=== PATIENT | male | born 1980 | race Caucasian/White ===

== ENCOUNTER 2020-04-28 14:07 | Outpatient (REF) | payer BC, SELFPAY ==
--- NOTE | 2020-04-28 14:22 | XR_ITS ---
EXAMINATION: XR KNEE, LEFT CLINICAL INFORMATION: Pain left knee. COMPARISON: None TECHNIQUE: Four views of the left knee. FINDINGS: There is moderate suprapatellar joint effusion without any loose bodies or bony erosive changes. No visible fracture, dislocation or subluxation. No gross bony abnormality. The prepatellar soft tissue normal. IMPRESSION: No visible acute fracture or dislocation. Moderate suprapatellar joint effusion.
== END 2020-04-28 14:08 | disposition home or self-care (01) ==
LOC: HO.HMGCX 14:07
PROVIDERS: PCP Nurse Practitioner Family; Visit Provider Hospitalist
DX: M25.562 Pain in left knee (principal)
CPT/HCPCS: 73564

== ENCOUNTER 2021-10-22 08:38 | Outpatient (REF) | payer OTHER, SELFPAY ==
--- NOTE | ~2021-10-22 | XR_ITS ---
EXAMINATION: XR CHEST CLINICAL INFORMATION: 41-year-old male with cough COMPARISON: 09/16/2013 TECHNIQUE: 2 views of the chest were obtained. FINDINGS: No significant abnormality is noted involving the heart, lungs, mediastinum, bony thorax or soft tissues. XR/XR chest 2V IMPRESSION: Unremarkable examination.
[2021-10-22 11:11] LABS: MANUAL DIFF FLAG NO
[2021-10-22 11:21] LABS: Basophils Absolute Auto 0.1 X10*3/uL (0.0-0.2); Basophils Percent Auto 0.4 % (0-2); Eosinophils Absolute Auto 0.3 X10*3/uL (0.0-0.4); Eosinophils Percent Auto 2.2 % (0-4); Hematocrit 45.5 % (42.0-52.0); Hemoglobin 15.1 g/dl (14.0-18.0); Imm Gran Abs Auto 0.04 X10*3/uL (0.00-0.03); Imm Gran Pct Auto 0.3 % (0.0-0.4); Lymphocytes Absolute Auto 3.8 X10*3/uL (1.2-4.9); Lymphocytes Percent Auto 33.2 % (20-40); Mean Corpuscular HGB Conc 33.2 g/dl (31.0-36.0); Mean Corpuscular Hemoglobin 30.5 pg (27.0-33.0); Mean Corpuscular Volume 91.9 fL (80.0-98.0); Mean Platelet Volume 11.2 fL (9.4-12.4); Monocytes Absolute Auto 0.7 X10*3/uL (0.1-1.2); Monocytes Percent Auto 6.3 % (2-11); Neutrophils Absolute Auto 6.7 x10*3/uL (2.0-8.3); Neutrophils Percent Auto 57.6 % (45-73); Platelet Count 195 X10*3/uL (160-400); Red Blood Count 4.95 X10*6/uL (4.60-5.80); Red Cell Distribution Width 12.5 % (11.0-16.0); White Blood Count 11.6 X10*3/uL (4.8-10.8)
[2021-10-22 11:49] LABS: TSH reflex Free T4 0.66 uIU/mL (0.32-4.0)
[2021-10-22 11:57] LABS: Alanine Aminotransferase 106 U/L (0-40); Albumin Level 4.1 g/dL (3.5-5.0); Alkaline Phosphatase 80 U/L (39-117); Anion Gap 15 (12-20); Aspartate Amino Transferase 65 U/L (5-37); Bilirubin Total 0.5 mg/dL (0.0-1.0); Blood Urea Nitrogen 13 mg/dL (9-16); Carbon Dioxide 27 mmol/L (22-29); Chloride 99 mmol/L (96-108); Cholesterol 140 mg/dL; Estimated Glomerular Filt Rate > 60; Glucose Fasting 364 mg/dL (60-99); HDL Cholesterol 34 mg/dL; LDL Cholesterol Calculated 80 mg/dl; Potassium 4.6 mmol/L (3.3-5.1); Sodium 136 mmol/L (135-145); Total Protein 7.9 g/dL (6.5-8.0); Triglycerides 130 mg/dL
[2021-10-22 11:57] LABS: Appearance Urine CLEAR; Color Urine YELLOW; Glucose Urine UA 500 MG/DL (NEG); Leukocyte Esterase Urine NEG (NEG); Nitrite Urine NEG (NEG); PH 5.5 (5.0-8.0); Specific Gravity - Urine >= 1.030 (1.005-1.025); Urine Blood NEG (NEG); Urine Ketones NEG (NEG); Urine Protein NEG (NEG-TRACE)
[2021-10-22 12:12] LABS: HBS Num1 > 1000.00 mIU/mL (0-7.99); HBc Num1 0.17 S/CO (0.00-0.79); HBsAGNum1 0.16 S/CO (0.00-0.99); Hepatitis B Core Antibody Nonreactive (Nonreactive); Hepatitis B Surface Antigen Negative (Negative); ~Hepatitis B Surface Antibody REACTIVE (Nonreactive)
[2021-10-22 12:24] LABS: ~HepC Num1 14.75 S/CO (0.00-0.79); ~Hepatitis C Antibody Reactive (Nonreactive)
[2021-10-23 07:37] LABS: Hepatitis A Antibody IgM 0.18 Index (0-0.79); ~Hepatitis A Antibody IgM Nonreactive (Nonreactive)
[2021-10-23 13:02] LABS: HCV RNA PCR Qn 2020000 IU/mL (NOT DETECTED); HCV RNA PCR Qn 6.31 Log IU/mL (NOT DETECTED)
[2021-11-07 18:52] LABS: HCV Genotype LiPA 1a
== END 2021-10-22 08:39 | disposition home or self-care (01) ==
LOC: HO.HMGCX 08:38
PROVIDERS: Visit Provider Nurse Practitioner Family
DX: Z00.00 Encounter for general adult medical examination without abnormal findings (principal); R05.9 Cough, unspecified; Z86.19 Personal history of other infectious and parasitic diseases
CPT/HCPCS: 36415; 71046; 80053; 80061; 81003; 84443; 85025; 86704; 86706; 86709; 86803; 87340; 87902

== ENCOUNTER 2022-03-10 15:24 | Outpatient (REF) | payer OTHER, SELFPAY ==
[2022-03-10 15:48] LABS: MANUAL DIFF FLAG NO
[2022-03-10 16:05] LABS: Appearance Urine Clear; Color Urine Yellow; Glucose Urine UA >=1000 mg/dL (Negative); Leukocyte Esterase Urine Negative (Negative); Nitrite Urine Negative (Negative); Specific Gravity - Urine 1.025 (1.005-1.025); Urine Blood Negative (Negative); Urine Ketones Negative (Negative); Urine Protein Negative (Neg-Trace)
[2022-03-10 16:06] LABS: Basophils Percent Auto 0.4 % (0-2); Eosinophils Absolute Auto 0.3 X10*3/uL (0.0-0.4); Eosinophils Percent Auto 2.3 % (0-4); Hematocrit 43.6 % (42.0-52.0); Hemoglobin 14.9 g/dl (14.0-18.0); Imm Gran Abs Auto 0.04 X10*3/uL (0.00-0.03); Imm Gran Pct Auto 0.4 % (0.0-0.4); Lymphocytes Absolute Auto 4.6 X10*3/uL (1.2-4.9); Lymphocytes Percent Auto 40.9 % (20-40); Mean Corpuscular HGB Conc 34.2 g/dl (31.0-36.0); Mean Corpuscular Hemoglobin 30.8 pg (27.0-33.0); Mean Corpuscular Volume 90.1 fL (80.0-98.0); Mean Platelet Volume 10.3 fL (9.4-12.4); Monocytes Absolute Auto 0.6 X10*3/uL (0.1-1.2); Monocytes Percent Auto 5.3 % (2-11); Neutrophils Absolute Auto 5.7 x10*3/uL (2.0-8.3); Neutrophils Percent Auto 50.7 % (45-73); Platelet Count 217 X10*3/uL (160-400); Red Blood Count 4.84 X10*6/uL (4.60-5.80); White Blood Count 11.2 X10*3/uL (4.8-10.8)
[2022-03-10 16:10] LABS: Bacteria Urine None Seen (None Seen); Hyaline Casts Urine 0-2 /LPF (0-2); RBC Urine 0-2 /HPF (0-2); Squamous Epithelial Cell Urine 0-2 /HPF (0-2); WBC Urine 0-5 /HPF (0-5)
[2022-03-10 16:23] LABS: Estimated Average Glucose 283 mg/dL; Hemoglobin A1c % 11.5 %
[2022-03-10 16:28] LABS: Creatinine Urine 58.33 mg/dL; Microalbum/Creatinine Ratio Ur 111.4 ug/mg cr
[2022-03-10 16:48] LABS: Alanine Aminotransferase 79 U/L (0-40); Albumin Level 4.2 g/dL (3.5-5.0); Alkaline Phosphatase 70 U/L (39-117); Anion Gap 15 (12-20); Aspartate Amino Transferase 37 U/L (5-37); Bilirubin Total 0.3 mg/dL (0.0-1.0); Blood Urea Nitrogen 16 mg/dL (9-16); Calcium 9.4 mg/dL (8.4-10.2); Carbon Dioxide 29 mmol/L (22-29); Chloride 98 mmol/L (96-108); Cholesterol 127 mg/dL; Estimated Glomerular Filt Rate > 60; Ferritin 302 ng/mL (20-250); Glucose Fasting 338 mg/dL (60-99); HDL Cholesterol 39 mg/dL; LDL Cholesterol Calculated 60 mg/dl; Potassium 4.8 mmol/L (3.3-5.1); Sodium 137 mmol/L (135-145); TSH reflex Free T4 0.36 uIU/mL (0.32-4.0); Total Protein 8.3 g/dL (6.5-8.0); Triglycerides 143 mg/dL
[2022-03-11 05:18] LABS: HIV AB/AG Nonreactive (Nonreactive); HIV Num 1 0.05 S/CO (0.00-0.99)
[2022-03-13 07:51] LABS: Alpha Fetoprotein 5.9 ng/mL (<6.1)
[2022-03-13 14:06] LABS: HCV RNA PCR Qn 2150000 IU/mL (NOT DETECTED); HCV RNA PCR Qn 6.33 Log IU/mL (NOT DETECTED)
[2022-03-19 08:56] LABS: HCV Genotype LiPA 1a
== END 2022-03-10 15:25 | disposition home or self-care (01) ==
LOC: HO.LAB 15:24
PROVIDERS: PCP Nurse Practitioner Family; Visit Provider Nurse Practitioner
DX: Z11.4 Encounter for screening for human immunodeficiency virus [HIV] (principal); B19.20 Unspecified viral hepatitis C without hepatic coma; E11.9 Type 2 diabetes mellitus without complications
CPT/HCPCS: 36415; 80053; 80061; 81001; 82043; 82105; 82728; 83036; 84443; 85025; 87389; 87522; 87902

== ENCOUNTER 2022-05-05 09:32 | Outpatient (REF) | payer OTHER, SELFPAY ==
--- NOTE | ~2022-05-05 | US_ITS ---
EXAMINATION: US COMPLETE ABDOMEN WITH LIVER ELASTOGRAPHY CLINICAL INFORMATION: Hepatitis C the hepatic dome. COMPARISON: None. TECHNIQUE: Real-time imaging of the abdominal viscera. Noninvasive ultrasound liver fibrosis assessment is performed using Richard ElastPQ point quantification shear wave elastography (2D-SWE) with a C5-2 MHz transducer. Multiple elastography samples are obtained. FINDINGS: PANCREAS: Visualized portions unremarkable. ABDOMINAL AORTA: Visualized portions unremarkable. INFERIOR VENA CAVA: Visualized portions unremarkable. LIVER: Diffuse increased echotexture without focal abnormality. The right lobe measures 19.3 cm in length. The left lobe measures 12.7 cm in length. Portal flow is patent with normal direction of flow. Shear wave liver elastography median stiffness is 2.17 m/s (reference: normal median stiffness is 1.3 m/s or less). IQR/median stiffness to assess sampling precision is 0.18 (reference: good quality data set is IQR/median stiffness of 0.15 or less). GALLBLADDER: 0.6 cm polyps along the superficial and posterior godoy of the fundus. No other significant abnormality. 0.7 cm echogenic focus is seen in the neck. Moderate dependent sludge. No mural thickening or pericholecystic fluid. COMMON BILE DUCT: Normal in caliber measuring 0.5 cm in diameter. RIGHT KIDNEY: 11.9 cm. Unremarkable. LEFT KIDNEY: 11.7 cm. Unremarkable. SPLEEN: 10.2 cm. Unremarkable. FREE FLUID: None. US/US abdomen comp w elastography IMPRESSION: 1. Hepatic steatosis without focal abnormality. 2. Liver elastography: Borderline rules in compensated advanced chronic liver disease/suggestive of clinically significant portal hypertension 3. Gallbladder sludge/small stones without evidence for acute cholecystitis. Gallbladder polyps amenable to follow-up with right upper quadrant ultrasound in one year. REFERENCE: Society of Radiologists in Ultrasound Liver Stiffness Thresholds (2020): LIVER STIFFNESS THRESHOLDS: *Liver Stiffness equal or less than 1.3 m/s: High probability of being normal. *Liver Stiffness less than 1.7 m/s: In the absence of other known clinical signs, rules out compensated advanced chronic liver disease. *Liver Stiffness 1.7-2.1 m/s: Suggestive of compensated advanced chronic liver disease but need further test for confirmation. *Liver Stiffness over 2.1 m/s: Rules in compensated advanced chronic liver disease. *Liver Stiffness over 2.4 m/s: Suggestive of clinically significant portal hypertension. QUALITY OF DATA SET: *IQR/Median value equal or less than 0.15 implies a quality data set. *IQR/Median value over 0.15 implies a poor quality data set. SIGNIFICANT CHANGE FROM PRIOR EXAM: Significant change if liver stiffness measurement is 10% or greater from prior exam. OTHER CONSIDERATIONS: The stage of liver fibrosis may be overestimated in the setting of acute hepatitis, liver inflammation, elevated liver function tests, hepatic vascular congestion, obstructive cholestasis, non-fasting state, and infiltrative diseases such as amyloidosis and lymphoma. In some patients with NAFLD, the liver stiffness thresholds for compensated advanced chronic liver disease may be lower. In causes other than viral hepatitis and NAFLD, liver stiffness thresholds are not well established.
== END 2022-05-05 09:33 | disposition home or self-care (01) ==
LOC: HO.US 09:32
PROVIDERS: Visit Provider Nurse Practitioner
DX: B19.20 Unspecified viral hepatitis C without hepatic coma (principal)
CPT/HCPCS: 76705; 76981

== ENCOUNTER 2023-04-12 06:28 | Outpatient (REF) | payer OTHER, SELFPAY ==
[2023-04-12 12:00] LABS: Appearance Urine Clear; Color Urine Yellow; Glucose Urine UA Negative (Negative); Leukocyte Esterase Urine Negative (Negative); Nitrite Urine Negative (Negative); PH 5.5 (5.0-9.0); Specific Gravity - Urine 1.015 (1.005-1.025); Urine Blood Negative (Negative); Urine Ketones Negative (Negative); Urine Protein Negative (Neg-Trace)
[2023-04-12 12:05] LABS: Basophils Absolute Auto 0.1 X10*3/uL (0.0-0.2); Basophils Percent Auto 0.8 % (0-2); Eosinophils Absolute Auto 0.5 X10*3/uL (0.0-0.4); Eosinophils Percent Auto 4.4 % (0-4); Hematocrit 44.1 % (42.0-52.0); Hemoglobin 14.6 g/dl (14.0-18.0); Imm Gran Abs Auto 0.03 X10*3/uL (0.00-0.03); Imm Gran Pct Auto 0.2 % (0.0-0.4); Lymphocytes Absolute Auto 5.2 X10*3/uL (1.2-4.9); Lymphocytes Percent Auto 42.7 % (20-40); MANUAL DIFF FLAG SCAN; Mean Corpuscular HGB Conc 33.1 g/dl (31.0-36.0); Mean Corpuscular Hemoglobin 30.4 pg (27.0-33.0); Mean Corpuscular Volume 91.7 fL (80.0-98.0); Mean Platelet Volume 10.5 fL (9.4-12.4); Monocytes Absolute Auto 0.8 X10*3/uL (0.1-1.2); Monocytes Percent Auto 6.6 % (2-11); Neutrophils Absolute Auto 5.6 x10*3/uL (2.0-8.3); Neutrophils Percent Auto 45.3 % (45-73); Platelet Count 251 X10*3/uL (160-400); Red Blood Count 4.81 X10*6/uL (4.60-5.80); Red Cell Distribution Width 12.5 % (11.0-16.0); SCAN SMEAR FLAG 1; White Blood Count 12.3 X10*3/uL (4.8-10.8)
[2023-04-12 12:11] LABS: Estimated Average Glucose 151 mg/dL; Hemoglobin A1C 172.4573 umol/L; Hemoglobin A1c % 6.9 % (<6.0)
[2023-04-12 12:29] LABS: Creatinine Urine 104.69 mg/dL; Microalbum/Creatinine Ratio Ur 7.6 ug/mg cr (<30)
[2023-04-12 12:39] LABS: Alanine Aminotransferase 24 U/L (0-40); Albumin Level 4.2 g/dL (3.5-5.0); Alkaline Phosphatase 76 U/L (39-117); Anion Gap 14 (12-20); Aspartate Amino Transferase 21 U/L (5-37); Bilirubin Total 0.5 mg/dL (0.0-1.0); Blood Urea Nitrogen 11 mg/dL (9-16); Calcium 9.8 mg/dL (8.4-10.2); Carbon Dioxide 30 mmol/L (22-29); Chloride 101 mmol/L (96-108); Cholesterol 148 mg/dL (<200); Estimated Glomerular Filt Rate > 60; Glucose Fasting 114 mg/dL (60-99); HDL Cholesterol 35 mg/dL (>40); LDL Cholesterol Calculated 84 mg/dL (<100); Potassium 4.7 mmol/L (3.3-5.1); Sodium 140 mmol/L (135-145); Total Protein 7.6 g/dL (6.5-8.0); Triglycerides 147 mg/dL (<150)
[2023-04-12 12:44] LABS: TSH reflex Free T4 0.84 uIU/mL (0.32-4.0)
[2023-04-12 14:21] LABS: SLIDE REVIEW VERIFIED
== END 2023-04-12 06:29 | disposition home or self-care (01) ==
LOC: HO.HMGCLDS 06:28
PROVIDERS: PCP Nurse Practitioner Family; Visit Provider Nurse Practitioner Family
DX: E11.9 Type 2 diabetes mellitus without complications (principal); I10 Essential (primary) hypertension
CPT/HCPCS: 36415; 80053; 80061; 81003; 82043; 82570; 83036; 84443; 85025

== ENCOUNTER 2023-05-02 13:56 | Outpatient (REF) | payer OTHER, SELFPAY ==
[2023-05-02 14:49] LABS: Alanine Aminotransferase 26 U/L (0-40); Albumin Level 4.4 g/dL (3.5-5.0); Alkaline Phosphatase 80 U/L (39-117); Aspartate Amino Transferase 19 U/L (5-37); Bilirubin Direct 0.1 mg/dL (0.0-0.5); Bilirubin Total 0.3 mg/dL (0.0-1.0)
[2023-05-03 15:48] LABS: HCV Log PCR <1.18 NOT DETECTED Log IU/mL (NOT DETECTED); HepC Viral Load <15 NOT DETECTED IU/mL (NOT DETECTED)
== END 2023-05-02 13:57 | disposition home or self-care (01) ==
LOC: HO.LAB 13:56
PROVIDERS: PCP Nurse Practitioner Family; Visit Provider Nurse Practitioner
DX: B19.20 Unspecified viral hepatitis C without hepatic coma (principal)
CPT/HCPCS: 36415; 80076; 87522

== ENCOUNTER 2023-05-05 14:58 | Outpatient (AMB) | payer OTHER, SELFPAY ==
--- NOTE | 2023-05-05 15:00 | A.OFFVIS_ITS ---
Intake Vital Signs 05/05/23 15:01 Height 5 ft 11 in Weight 219 lb 2.232 oz BMI 30.6 BP 128/83 Blood Pressure Location Lt brachial Position Sitting Pulse 97 Intake Visit Reasons: Follow up labs Intake Note: Patient presents to in office visit today in follow up of labs. CC: Patient reports doing better and denies having any new GI symptoms or concerns. Surveillance Manager Required: No Accompanied by: Self / Same As Patient Allergies No Known Allergies Allergy (Verified 05/05/22 11:51) HPI Follow up labs HPI Details Assessment & Plan (1) Hepatitis C: Code(s): B19.20 - Unspecified viral hepatitis C without hepatic coma Plan: CORRESPONDENCE . On 06/17/22 @ 13:28 Tish Arteaga Wrote To Naheed Damon Ene I spoke with [facility] and [employer] Support Line to attempt to obtain a copay card for pt. After multiple conversations with [facility], and [employer], pt was awarded a copay card: #[id number] [facility] [id number] [facility] [id number] II called [facility] to relay coupon code for pt, pharmacist said card is not foing through even though pt has a commercial insurance. Vale, the pharmacist is going to look into why the card is not going through and will call myself or Ene back today to inform us of the answer. On 06/17/22 @ 14:54 Tish Arteaga Wrote To Naheed Damon Received TC from [employer] who advised me that pt has a $6,235 copay, he did qualify for copay card which brings the cost down to $235 for first month. Rep is going to reach out to [facility] and ask for additional assistance for pt, then will contact pt with this information and give pt the information to reach out to 2 foundations that will give financial assistance. . On 06/11/22 @ 12:30 Tish Arteaga Wrote To Tish Arteaga see duplicate message response. Tish Arteaga completed item. On 06/02/22 @ 10:08 Tish Arteaga Wrote To Tish Arteaga TC to pt to ask if medication has been received, pt did not answer, LVM asking pt to call me when his meds are received. On 06/01/22 @ 00:01 System Wrote To Tish Arteaga Reminder sent to recipient On 05/27/22 @ 10:06 Tish Arteaga Wrote To Tish Arteaga Call to ask if medication has been received. TODAY'S VISI Pt had significant glucosurea on UA form PCP, not on SLG-1, only on metformin. WE REVIEWED THE TEST AND IT SEEMS that he has not yet begun his hepatitis C medication. We will continue to work on this and see what the problem is in the meantime I will schedule in for 6 month follow-up for his liver disease and is IBS. (2) Abdominal cramping: Code(s): R10.9 - Unspecified abdominal pain Pt had significant glucosurea on UA form PCP, not on SLG-1, only on metformin. WE REVIEWED THE TEST AND IT SEEMS that he has not yet begun his hepatitis C medication. We will continue to work on this and see what the problem is in the meantime I will schedule in for 6 month follow-up for his liver disease and is IBS. LABS: Laboratory Tests 03/10/22 04/12/23 04/12/23 15:45 06:34 06:34 WBC 12.3 H Hgb 14.6 Hct 44.1 Plt Count 251 Estimated GFR > 60 Hemoglobin A1c % Ferritin 302 H Total Bilirubin Direct Bilirubin AST ALT Alkaline Phosphata se Hep C Viral Load Hep C Viral Load L og 04/12/23 05/02/23 05/02/23 06:34 14:05 14:05 WBC Hgb Hct Plt Count Estimated GFR Hemoglobin A1c % 6.9 H Ferritin Total Bilirubin 0.3 Direct Bilirubin 0.1 AST 19 ALT 26 Alkaline Phosphata se 80 Hep C Viral Load <15 NOT DETECTED Hep C Viral Load L og <1.18 NOT DETECTE D TODAY'S VISIT PATIENT HAS BEEN LOST TO FOLLOW-UP SINCE 04/2022. However he called into the office in said he completed his hepatitis C Epclusa treatment and asked to have labs ordered to see whether it was successful I am happy to tell him that he was successfully during his hepatitis C. He was counseled that he needs to avoid any risky behaviors going forward because he will not be immune to the other genic types of hepatitis C that her possible be contacted in this way. He repeat verbalizes understanding. Return office visit p.r.n.. [facility] Medical History Diabetic neuropathy GERD (gastroesophageal reflux disease) Lumbago with sciatica, right side Anxiety Hypertension Family History Father Cancer Mother Heart disease Social History Housing: Condominium Patient Tobacco Use Status: Current everyday Tobacco user Cigarettes Per Day: 7 e-Cigarette/Vaping Use: Never Used Second Hand Smoke Exposure: Yes service: No Current occupational status: employed Current occupation: [employer] Current occupational exposures/hazards: No Cognitive needs: No Hearing needs: No Vision needs: No Review of Systems Const Denies fatigue, Denies fever(s), Denies night sweats, Denies poor appetite and Denies weight loss ENT Reports Normal hearing present, Denies dental pain, Denies dysphagia, Denies hearing loss, Denies mouth pain, Denies odynophagia, Denies throat swelling, Denies tongue swelling and Reports other (Dentition adequate) Card Reports no additional complaints Resp Reports no additional complaints GI Denies abdominal pain, Denies melena, Denies bloating, Denies hematochezia, Denies constipation, Denies GI cramping, Denies dysphagia, Denies excessive flatus, Denies early satiety, Denies heartburn, Denies diarrhea, Denies nausea, Denies odynophagia, Denies vomiting and Denies hematemesis Skin/Breast Denies pruritus, Denies lesions, Denies rash and Denies jaundice Neuro Reports Normal hearing present and Denies Abnormal speech present Endo Denies fatigue Aller/Immun Denies throat swelling and Denies tongue swelling Physical Exam Vital Signs: Last Vital Signs Pulse 97 05/05/23 15:01 BP 128/83 05/05/23 15:01 BMI result Body Mass Index 30.6 Const General: cooperative, no acute distress, well developed and well groomed Nutritional Appearance: well nourished and overweight Orientation/consciousness: oriented to person, oriented to place and oriented to time Limitations: No language barrier HEENT Head: Yes normocephalic and Yes atraumatic Eyes General: appearance normal, both eyes and all related structures Pupils: Equal, round and reactive pupils present Neck Neck: Yes normal visual inspection and Yes no lymphadenopathy Thyroid: Thyroid normal Resp Effort & Inspection: normal respiratory effort and able to speak in complete sentences Auscultation: clear to auscultation bilaterally Cardio Rate: regular rate Rhythm: regular rhythm Heart sounds: Normal, physiologic split S2 sound present Peripheral pulses: radial pulses present and posterior tibial pulses present GI Inspection: No distended and No Abdominal panniculus present Palpation (GI): Soft to palpation, nontender, no guarding, not rigid and No hepatosplenomegaly present Percussion: Yes normal to percussion Auscultation: normal bowel sounds Rectal Exam - Male: Yes deferred Skin General skin exam: no rashes or lesions noted, turgor normal, skin not dry, no jaundice, No spider nevi and no striae Rashes: no rashes Nails: normal Neuro General: oriented to person, oriented to place and oriented to time Cranial nerves: Yes Equal, round and reactive pupils present and Yes Normal hearing present Speech: No Abnormal speech present Extrem General: Yes normal to inspection, No clubbing, No cyanosis and No edema Psych Appearance: grossly normal and well kempt Mental Status: mental status grossly normal Speech and movement: Normal speech and movement present Affect: normal affect Attitude: cooperative Thought process: Normal thought process present and not confabulating Thought content: Normal thought content present Insight: Limited insight present (Psych) Judgement: Limited judgement present (Psych) Assessment & Plan Assessment & Plan (1) Hepatitis C: Comment: .SVR status post Epclusa Code(s): B19.20 - Unspecified viral hepatitis C without hepatic coma Plan PATIENT HAS BEEN LOST TO FOLLOW-UP SINCE 04/2022. However he called into the office in said he completed his hepatitis C Epclusa treatment and asked to have labs ordered to see whether it was successful I am happy to tell him that he was successfully during his hepatitis C. He was counseled that he needs to avoid any risky behaviors going forward because he will not be immune to the other genic types of hepatitis C that her possible be contacted in this way. He repeat verbalizes understanding. Return office visit p.r.n. Coding Level of Care Code Est Pt Level 3 (26037) Diagnoses Hepatitis C B19.20
[2023-05-05 15:01] VITALS: BP 128/83; PULSE 97; BMI 30.6
== END 2023-05-05 15:15 | disposition home or self-care (01) ==
PROVIDERS: PCP Nurse Practitioner Family; Visit Provider Nurse Practitioner
DX: B19.20 Unspecified viral hepatitis C without hepatic coma (principal)
CPT/HCPCS: 99213

== ENCOUNTER → 2023-05-05 14:58 | Outpatient (BNVA) | payer OTHER, SELFPAY | PROVIDERS: PCP Nurse Practitioner Family; Visit Provider Nurse Practitioner ==

== ENCOUNTER 2023-06-20 10:23 | Outpatient (AMB) | payer OTHER, SELFPAY ==
--- NOTE | 2023-06-20 10:36 | MHC.PC.OV ---
Vital Signs 06/20/23 10:37 Weight 226 lb BP 140/90 H Blood Pressure Location Rt brachial Position Sitting Pulse 83 Pulse Source Pulse Oximeter Pulse Oximetry (%) 98 Oxygen Delivery Method Room Air Intake Visit Reasons: Follow UP DM/DO not cancel Allergies No Known Allergies Allergy (Verified 05/05/22 11:51) Medication List - Last Reconciled 06/20/23 by JIL ThompsonP- alcohol swabs (Alcohol Pads) 1 pad topical BID blood sugar diagnostic (FreeStyle Lite Strips) Use to check fasting blood sugar and another random time during the day. blood-glucose meter (FreeStyle Lite Meter kit) Use to check blood sugar BID famotidine 20 mg PO BID FreeStyle Yancy 2 [place] (flash glucose scanning reader) TID testing NS FreeStyle Yancy 2 Sensor (flash glucose sensor) TID testing NS gabapentin 300 mg PO TID 30 days lancets (FreeStyle Lancets) Use to check fasting blood sugar and another time during the day losartan 50 mg PO DAILY semaglutide 1 mg (0.75 mL) subcut QWEEK Tobacco use date assessed: 06/20/23 Dental Screening Dental Screen Date: 06/20/23 Did you have a dental visit in the last 12 months?: No Did you have a dental problem in the last 6 months where you did not have access to dental care?: No Was dental information given to patient?: Patient has dentist HPI Follow UP DM/DO not cancel HPI Details Pt is a diabetic, on an ARB. Last A1C was 6.9, microalbumin is up to date. Denies polyuria, polydipsia, and neuropathy. Pt denies any signs and symptoms of hypoglycemia and does know how to correct it. Pt reports that his blood sugar has been well-controlled. He is watching his diet. Pt c/o cold intolerance and fatigue. Pt reports being very cold while outside. Will order labs, denies s/s of raynauds. Pt also c/o sinus pressure. He does have a broken right upper tooth which may be contributing to this. Will order sinus XR. HTN: Pt reports that his blood pressure is stable at home, in the 120s-130s/70s-80s. Denies chest pain, shortness of breath, headache, dizziness, and blurred vision. [facility] Medical History Diabetic neuropathy GERD (gastroesophageal reflux disease) Lumbago with sciatica, right side Anxiety Hypertension Family History Father Cancer Mother Heart disease Social History Housing: Condominium Patient Tobacco Use Status: Current everyday Tobacco user Cigarettes Per Day: 7 e-Cigarette/Vaping Use: Never Used Second Hand Smoke Exposure: Yes service: No Current occupational status: employed Current occupation: Partly Current occupational exposures/hazards: No Cognitive needs: No Hearing needs: No Vision needs: No Questionnaire Thrive Questionnaire Date Thrive assessed: 01/07/22 JOSIAH-7 AMB Questionnaire JOSIAH-7 Date JOSIAH - 7 assessed: 01/07/22 Source: Developed by Drs. Ovidio Dobbs, Meghana Carey, Kane Arzate and colleagues, with an educational ricardo from [employer]. Review of Systems Const Reports as per HPI Physical exam (Primary Care) Vital Signs: Last Vital Signs Pulse 83 06/20/23 10:37 BP 140/90 H 06/20/23 10:37 Pulse Ox 98 06/20/23 10:37 Oxygen Delivery Method Room Air 06/20/23 10:37 Tobacco/Smoking Status: Tobacco use Status Tobacco use date assessed 06/20/23 06/20/23 10:40 Patient Tobacco Use Status Current everyday Tobacco 06/20/23 10:40 e-Cigarette/Vaping Use Never Used 06/20/23 10:40 Thrive Assessment: Date of Thrive Assessment Date Thrive assessed 01/07/22 06/20/23 10:40 Const General: cooperative Orientation/consciousness: patient oriented x3 HENMT Other: tenderness with palpation of frontal + maxillary sinuses Resp Effort & Inspection: normal respiratory effort Auscultation: clear to auscultation bilaterally Cardio Rate: regular rate Rhythm: regular rhythm Heart sounds: S1 normal heart sound present and S2 normal heart sound present Neuro General: patient oriented x3 Extrem Other: bilat feet: + sensation with use of monofilament Psych Appearance: grossly normal Mental Status: mental status grossly normal Speech and movement: Normal speech and movement present Affect: normal affect Attitude: cooperative Thought process: Normal thought process present Thought content: Normal thought content present Insight: Good insight present (Psych) Judgement: Good judgement present (Psych) Assessment and Plan Assessment & Plan (1) Sinus pressure: Code(s): J34.89 - Other specified disorders of nose and nasal sinuses Plan: XR ordered (2) Fatigue: Code(s): R53.83 - Other fatigue Plan: Labs ordered (3) Cold intolerance: Code(s): R68.89 - Other general symptoms and signs Plan: Labs ordered Plan The patient agreed to the use of a product manager medical device for this encounter. Scribed for TAMMY Dailey- by Tanna Lam product manager medical device, on 06/20/2023 at 10:55 EST. Orders: Orders Vitamin B12 and Folate Today R53.83 - Other fatigue, R68.89 - Other general symptoms and signs C Reactive Protein Today R53.83 - Other fatigue, R68.89 - Other general symptoms and signs DNA Double Stranded-Crithidia Today R53.83 - Other fatigue, R68.89 - Other general symptoms and signs IRON PROFILE Today R53.83 - Other fatigue, R68.89 - Other general symptoms and signs Ferritin Today R53.83 - Other fatigue, R68.89 - Other general symptoms and signs XR sinus min 3V Today J34.89 - Other specified disorders of nose and nasal sinuses Complete Blood Count Auto Diff Today R53.83 - Other fatigue, R68.89 - Other general symptoms and signs Comprehensive Met. Panel Today R53.83 - Other fatigue, R68.89 - Other general symptoms and signs TSH reflex Free T4 Today R53.83 - Other fatigue, R68.89 - Other general symptoms and signs Tick-borne Disease Molecular Today R53.83 - Other fatigue, R68.89 - Other general symptoms and signs Erythrocyte Sedimentation Rate Today R53.83 - Other fatigue, R68.89 - Other general symptoms and signs Scleroderma 12 Panel Today R53.83 - Other fatigue, R68.89 - Other general symptoms and signs JOHAN Reflex Titer and Pattern Today R53.83 - Other fatigue, R68.89 - Other general symptoms and signs Cortisol Random Today R53.83 - Other fatigue, R68.89 - Other general symptoms and signs Medications: Refilled semaglutide Take 1mg dose until increased dose becomes available. 1 mg (0.75 mL) subcut QWEEK 3 mL 1RF E11.9 - Type 2 diabetes mellitus without complications Coding Level of Care Code Est Pt Level 3 (13479) Diagnoses Sinus pressure J34.89 Fatigue R53.83 Cold intolerance R68.89
[2023-06-20 10:37] VITALS: BP 140/90; PULSE 83; O2SAT 98
== END 2023-06-20 11:18 | disposition home or self-care (01) ==
PROVIDERS: PCP Nurse Practitioner Family; Visit Provider Nurse Practitioner Family
DX: J34.89 Other specified disorders of nose and nasal sinuses (principal); R53.83 Other fatigue; R68.89 Other general symptoms and signs
CPT/HCPCS: 99213

== ENCOUNTER 2023-06-20 11:20 | Outpatient (REF) | payer OTHER, SELFPAY ==
--- NOTE | ~2023-06-20 | XR_ITS ---
EXAMINATION: XR SINUSES CLINICAL INFORMATION: Other specified disorders of the nose and nasal sinuses. COMPARISON: None available. TECHNIQUE: 4 views of the sinuses FINDINGS: Visualized paranasal sinuses appear clear. No air-fluid levels. XR/XR sinus min 3V IMPRESSION: Visualized paranasal sinuses appear clear. If clinical concern for sinusitis persists, CT sinuses be more sensitive for evaluation.
[2023-06-20 13:12] LABS: MANUAL DIFF FLAG NO
[2023-06-20 13:46] LABS: Basophils Absolute Auto 0.1 X10*3/uL (0.0-0.2); Basophils Percent Auto 0.5 % (0-2); Eosinophils Absolute Auto 0.3 X10*3/uL (0.0-0.4); Eosinophils Percent Auto 2.9 % (0-4); Hematocrit 43.3 % (42.0-52.0); Hemoglobin 14.4 g/dl (14.0-18.0); Imm Gran Abs Auto 0.03 X10*3/uL (0.00-0.03); Imm Gran Pct Auto 0.3 % (0.0-0.4); Lymphocytes Absolute Auto 3.7 X10*3/uL (1.2-4.9); Mean Corpuscular HGB Conc 33.3 g/dl (31.0-36.0); Mean Corpuscular Hemoglobin 30.4 pg (27.0-33.0); Mean Corpuscular Volume 91.4 fL (80.0-98.0); Mean Platelet Volume 10.6 fL (9.4-12.4); Monocytes Absolute Auto 0.5 X10*3/uL (0.1-1.2); Monocytes Percent Auto 4.5 % (2-11); Neutrophils Absolute Auto 5.7 x10*3/uL (2.0-8.3); Neutrophils Percent Auto 55.8 % (45-73); Platelet Count 243 X10*3/uL (160-400); Red Blood Count 4.74 X10*6/uL (4.60-5.80); Red Cell Distribution Width 12.5 % (11.0-16.0); White Blood Count 10.3 X10*3/uL (4.8-10.8)
[2023-06-20 14:11] LABS: Alanine Aminotransferase 28 U/L (0-40); Albumin Level 4.4 g/dL (3.5-5.0); Alkaline Phosphatase 73 U/L (39-117); Anion Gap 13 (12-20); Aspartate Amino Transferase 18 U/L (5-37); Bilirubin Total 0.3 mg/dL (0.0-1.0); Blood Urea Nitrogen 10 mg/dL (9-16); C Reactive Protein 0.26 mg/dL (< or = 0.50); Calcium 9.7 mg/dL (8.4-10.2); Carbon Dioxide 27 mmol/L (22-29); Chloride 105 mmol/L (96-108); Estimated Glomerular Filt Rate > 60; Glucose Random 170 mg/dL (60-115); Iron 84 mcg/dL (45-160); Percent Iron Saturation 28 % (15-50); Potassium 4.5 mmol/L (3.3-5.1); Sodium 140 mmol/L (135-145); Total Iron Binding Capacity 297 mcg/dL (228-428); Unsaturated Iron Binding 213 ug/dL
[2023-06-20 14:29] LABS: Ferritin 162 ng/mL (20-250); TSH reflex Free T4 0.49 uIU/mL (0.32-4.0)
[2023-06-20 14:31] LABS: Erythrocyte Sedimentation Rate 5 MM/HR (0-15)
[2023-06-20 14:41] LABS: Cortisol Random 15.2 ug/dL
[2023-06-20 14:45] LABS: Folate 9.3 ng/mL (> or = 4.0); Vitamin B12 403 pg/mL (200-900)
[2023-06-22 05:44] LABS: A. Phagocytphilium DNA,RT-PCR NOT DETECTED (NOT DETECTED); Babesia Microti DNA, RT-PCR NOT DETECTED (NOT DETECTED); Borrelia Miyamotoi,DNA RT-PCR NOT DETECTED (NOT DETECTED); E.Chaffeensis DNA RT-PCR NOT DETECTED (NOT DETECTED); Lyme(Borrelia ssp)DNA RT-PCR NOT DETECTED (NOT DETECTED)
[2023-06-23 08:24] LABS: Anti Nuclear Antibody Screen NEGATIVE (NEGATIVE)
[2023-06-24 12:39] LABS: DNAds, Crithidia Antibody Negative (Negative)
== END 2023-06-20 11:21 | disposition home or self-care (01) ==
LOC: HO.HMGCX 11:20
PROVIDERS: PCP Nurse Practitioner Family; Visit Provider Nurse Practitioner Family
DX: R68.89 Other general symptoms and signs (principal); R53.83 Other fatigue; J34.89 Other specified disorders of nose and nasal sinuses
CPT/HCPCS: 36415; 70220; 80053; 82533; 82607; 82728; 82746; 83540; 84443; 85025; 85652; 86038; 86140; 86255; 87468; 87469; 87478; 87484; 87798

== ENCOUNTER 2023-09-21 08:49 | Outpatient (AMB) | payer OTHER, SELFPAY ==
[2023-09-21 08:52] VITALS: BP 142/90; PULSE 90; O2SAT 97; BMI 29.0
--- NOTE | 2023-09-21 08:52 | MHC.PC.OV ---
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 blood-glucose meter (FreeStyle Lite Meter kit) Use to check blood sugar BID famotidine 20 mg PO BID FreeStyle Yancy 2 [place] (flash glucose scanning reader) TID testing NS FreeStyle Yancy 2 Sensor (flash glucose sensor) TID testing NS gabapentin 300 mg PO TID lancets (FreeStyle Lancets) Use to check fasting blood sugar and another time during the day losartan 50 mg PO DAILY semaglutide (Ozempic) 2 mg (0.75 mL) subcut QWEEK Tobacco use date assessed: 09/21/23 Dental Screening Dental Screen Date: 09/21/23 Did you have a dental visit in the last 12 months?: Yes Did you have a dental problem in the last 6 months where you did not have access to dental care?: No Was dental information given to patient?: Patient has dentist HPI 3 Month F/U HPI Details Pt is a diabetic, on an ARB. A1C in office today is 7.3. Microalbumin is up to date. Denies polyuria, polydipsia, does have intermittent neuropathy. Pt denies any signs and symptoms of hypoglycemia and does know how to correct it. Eye exam is up to date. Pt reports that he has been working on his diet. Will start low dose atorvastatin. Pt c/o nausea. He reports that this occurs mostly in the morning when he wakes up. Will send zofran. Pt counselled on quitting smoking (? post nasal drip/smoking, causing nausea) Refuses pneumonia vaccines. [facility] Medical History Diabetic neuropathy GERD (gastroesophageal reflux disease) Lumbago with sciatica, right side Anxiety Hypertension Surgical History Hx of wisdom tooth extraction Family History Father Cancer Mother Heart disease [facility] Patient Tobacco Use Status: Current everyday Tobacco user Cigarettes Per Day: 7 e-Cigarette/Vaping Use: Never Used Second Hand Smoke Exposure: Yes service: No Current occupational status: employed Current occupation: [employer] Current occupational exposures/hazards: No Cognitive needs: No Hearing needs: No Vision needs: No Questionnaire PHQ-9 Over the last 2 weeks, how often have you been bothered by any of the following problems? 1. Little interest or pleasure in doing things: not at all 2. Feeling down, depressed, or hopeless: not at all 3. Trouble falling or staying asleep, or sleeping too much: several days 4. Feeling tired or having little energy: several days 5. Poor appetite or overeating: several days 6. Feeling bad about yourself - or that you are a failure or have let yourself or your family down: several days 7. Trouble concentrating on things, such as reading the newspaper or watching television: not at all 8. Moving or speaking so slowly that other people could have noticed. Or the opposite - being so fidgety or restless that you have been moving around a lot more than usual: not at all 9. Thoughts that you would be better off or of hurting yourself in some way: not at all Total score: 4 Depression Screening Interpretation: Negative Depression Screening Done: Yes 05703 - PHQ-9 Billing: Yes Source: Developed by Drs. Ovidio Dobbs, Meghana Carey, Kane Arzate and colleagues, with an educational ricardo from [employer]. Thrive Questionnaire Date Thrive assessed: 09/21/23 I am a: Patient What is your living situation today?: I have a steady place to live Within the past 12 months, did the food you bought not last and you didn't have the money to get more?: Never true Within the past 12 months, did you worry whether your food would run out before you got money to buy more?: Never true Do you have trouble paying for medicines?: No Do you have trouble getting transportation to medical appointments?: No Do you have trouble paying your heating and electricity bill?: No Do you have trouble taking care of your child, family member or friend?: No Do you have trouble with day-to-day activities such as bathing, preparing meals, shopping, managing finances, etc.?: No Are you currently unemployed and looking for a job?: No Are you interested in more education?: No Please select the resources that you would like help with: None Currently or been in a relationship where the following occur: no concerns reported THRIVE Score: 0 AUDIT C Alcohol Use Questionnaire (AUDIT-C) 1. How often do you have a drink containing alcohol?: Never 3. How often do you have six or more drinks on one occasion?: Never Total Score: 0 Score Reviewed/Action Taken: Yes JOSIAH-7 AMB Questionnaire JOSIAH-7 Date JOSIAH - 7 assessed: 09/21/23 Feeling nervous, anxious, or on edge: 1 = Several days Not being able to stop or control worryin = Not at all Worrying too much about different things: 1 = Several days Trouble relaxin = Several days Being so restless that it is hard to sit still: 1 = Several days Becoming easily annoyed or irritable: 1 = Several days Feeling afraid as if something awful might happen: 1 = Several days Total JOSIAH-7 score (0-4 normal; 5-9 mild; 10-14 moderate; 15-21 severe): 6 Source: Developed by Drs. Ovidio Dobbs, Meghana Carey, Kane Arzate and colleagues, with an educational ricardo from [employer]. JOSIAH-7 Assessment Billing JOSIAH-7 Assessment Tool: JOSIAH-7 Assessment 17713 Review of Systems Const Reports as per HPI Physical exam (Primary Care) Vital Signs: Last Vital Signs Pulse 90 09/21/23 08:52 BP 138/88 09/21/23 09:22 Pulse Ox 97 09/21/23 08:52 Oxygen Delivery Method Room Air 09/21/23 08:52 BMI result Body Mass Index 29.0 Tobacco/Smoking Status: Tobacco use Status Tobacco use date assessed 09/21/23 09/21/23 08:59 Patient Tobacco Use Status Current everyday Tobacco 09/21/23 08:59 e-Cigarette/Vaping Use Never Used 09/21/23 08:59 PHQ-9: PHQ-9 Score PHQ-9: Total score 4 09/21/23 09:22 Depression Screening Interpretation: Negative Thrive Assessment: Date of Thrive Assessment Date Thrive assessed 09/21/23 09/21/23 08:59 Currently or been in a relationship where the following occur: no concerns reported Const General: cooperative Orientation/consciousness: patient oriented x3 Resp Effort & Inspection: normal respiratory effort Auscultation: clear to auscultation bilaterally Cardio Rate: regular rate Rhythm: regular rhythm Heart sounds: S1 normal heart sound present and S2 normal heart sound present GI Palpation (GI): Soft to palpation and nontender Auscultation: normal bowel sounds Neuro General: patient oriented x3 Extrem Other: bilat feet: + sensation with use of monofilament, feet intact Psych Appearance: grossly normal Mental Status: mental status grossly normal Speech and movement: Normal speech and movement present Affect: normal affect Attitude: cooperative Thought process: Normal thought process present Thought content: Normal thought content present Insight: Good insight present (Psych) Judgement: Good judgement present (Psych) Results AMB Hemoglobin A1c AMB Hemoglobin A1c 7.3 % Last Edit by Braulio Pope CMA on 09/21/23 09:15 Results Reviewed Results Reviewed: Laboratory Last Values Hgb A1c (Clinic) 7.3 % (4.0-6.0) H 09/21/23 09:14 Assessment and Plan Assessment & Plan (1) Diabetes: Code(s): E11.9 - Type 2 diabetes mellitus without complications Plan: no changes, working on diet, using sensor, lab work ordered. Plan The patient agreed to the use of a medical payment poster for this encounter. Scribed for AZUL Dailey by Tanna Lam medical payment poster, on 09/21/2023 at 09:10 EST. Orders: Orders Complete Blood Count Auto Diff Today E11.9 - Type 2 diabetes mellitus without complications AMB Hemoglobin A1c Today Z13.9 - Encounter for screening, unspecified Comprehensive Guy. Panel Fast Today E11.9 - Type 2 diabetes mellitus without complications TSH reflex Free T4 Today E11.9 - Type 2 diabetes mellitus without complications UA CC w/rflx Micro + Cult Today E11.9 - Type 2 diabetes mellitus without complications Lipid Panel Today E11.9 - Type 2 diabetes mellitus without complications Medications: New ondansetron 8 mg PO Q12H PRN 30 tabs 0RF nausea and vomiting 30 days atorvastatin 10 mg PO BEDTIME 90 tabs 0RF Refilled FreeStyle Yancy 2 Sensor (flash glucose sensor) TID testing 6 ea 4RF NS E11.9 - Type 2 diabetes mellitus without complications Coding Level of Care Code Est Pt Level 3 (90138) Diagnoses Diabetes E11.9 Additional Codes JOSIAH-7 Assessment Billing - JOSIAH-7 Assessment Tool: JOSIAH-7 Assessment 57423 ([id number])
[2023-09-21 09:22] VITALS: BP 138/88
== END 2023-09-21 09:29 | disposition home or self-care (01) ==
PROVIDERS: PCP Nurse Practitioner Family; Visit Provider Nurse Practitioner Family
DX: E11.40 Type 2 diabetes mellitus with diabetic neuropathy, unspecified (principal); R11.0 Nausea; F17.210 Nicotine dependence, cigarettes, uncomplicated
CPT/HCPCS: 83036; 99214

== ENCOUNTER 2024-01-31 06:10 | Outpatient (REF) | payer OTHER, SELFPAY ==
[2024-01-31 10:18] LABS: Appearance Urine Clear; Color Urine Yellow; Glucose Urine UA Negative (Negative); Leukocyte Esterase Urine Negative (Negative); Nitrite Urine Negative (Negative); PH 5.5 (5.0-9.0); Specific Gravity - Urine 1.025 (1.005-1.025); Urine Blood Negative (Negative); Urine Ketones Negative (Negative); Urine Protein Negative (Neg-Trace)
[2024-01-31 10:20] LABS: Basophils Absolute Auto 0.1 X10*3/uL (0.0-0.2); Basophils Percent Auto 0.5 % (0-2); Eosinophils Absolute Auto 0.5 X10*3/uL (0.0-0.4); Eosinophils Percent Auto 4.7 % (0-4); Hematocrit 41.1 % (42.0-52.0); Hemoglobin 13.9 g/dl (14.0-18.0); Imm Gran Abs Auto 0.04 X10*3/uL (0.00-0.03); Imm Gran Pct Auto 0.4 % (0.0-0.4); Lymphocytes Absolute Auto 5.6 X10*3/uL (1.2-4.9); Lymphocytes Percent Auto 49.8 % (20-40); MANUAL DIFF FLAG SCAN; Mean Corpuscular HGB Conc 33.8 g/dl (31.0-36.0); Mean Corpuscular Hemoglobin 30.9 pg (27.0-33.0); Mean Corpuscular Volume 91.3 fL (80.0-98.0); Mean Platelet Volume 10.8 fL (9.4-12.4); Monocytes Absolute Auto 0.7 X10*3/uL (0.1-1.2); Monocytes Percent Auto 6.5 % (2-11); Neutrophils Absolute Auto 4.3 x10*3/uL (2.0-8.3); Neutrophils Percent Auto 38.1 % (45-73); Platelet Count 213 X10*3/uL (160-400); Red Cell Distribution Width 12.6 % (11.0-16.0); SCAN SMEAR FLAG 1; White Blood Count 11.2 X10*3/uL (4.8-10.8)
[2024-01-31 10:33] LABS: Alanine Aminotransferase 28 U/L (0-40); Albumin Level 4.2 g/dL (3.5-5.0); Alkaline Phosphatase 65 U/L (39-117); Anion Gap 12 (12-20); Aspartate Amino Transferase 21 U/L (5-37); Bilirubin Total 0.3 mg/dL (0.0-1.0); Blood Urea Nitrogen 15 mg/dL (9-16); Calcium 9.6 mg/dL (8.4-10.2); Carbon Dioxide 30 mmol/L (22-29); Chloride 104 mmol/L (96-108); Cholesterol 135 mg/dL (<200); Estimated Glomerular Filt Rate > 60; Glucose Fasting 111 mg/dL (60-99); HDL Cholesterol 36 mg/dL (>40); LDL Cholesterol Calculated 80 mg/dL (<100); Potassium 4.7 mmol/L (3.3-5.1); Sodium 141 mmol/L (135-145); Total Protein 7.3 g/dL (6.5-8.0); Triglycerides 96 mg/dL (<150)
[2024-01-31 10:49] LABS: TSH reflex Free T4 0.51 uIU/mL (0.32-4.0)
[2024-01-31 11:00] LABS: SLIDE REVIEW VERIFIED
== END 2024-01-31 06:11 | disposition home or self-care (01) ==
LOC: HO.HMGCLDS 06:10
PROVIDERS: PCP Nurse Practitioner Family; Visit Provider Nurse Practitioner Family
DX: E11.9 Type 2 diabetes mellitus without complications (principal)
CPT/HCPCS: 36415; 80053; 80061; 81003; 84443; 85025

== ENCOUNTER 2024-02-01 09:55 | Outpatient (AMB) | payer OTHER, SELFPAY ==
--- NOTE | 2024-02-01 09:56 | MHC.PC.OV ---
Vital Signs 02/01/24 09:59 Height 5 ft 11 in Weight 217 lb BMI 30.3 BP 116/110 H Blood Pressure Location Lt brachial Position Sitting Pulse 86 Pulse Source Pulse Oximeter Pulse Oximetry (%) 97 Oxygen Delivery Method Room Air Intake Visit Reasons: 4 Month F/U - see comments Intake Note: Patient here for DM f/u. Allergies No Known Allergies Allergy (Verified 02/01/24 09:59) Medication List - Last Reconciled 02/01/24 by AZUL Thompson alcohol swabs (Alcohol Pads) 1 pad topical BID amoxicillin-pot clavulanate 875-125 mg 1 tab PO BID 10 days atorvastatin 10 mg PO BEDTIME blood sugar diagnostic (FreeStyle Lite Strips) Use to check fasting blood sugar and another random time during the day. blood-glucose meter (FreeStyle Lite Meter kit) Use to check blood sugar BID famotidine 20 mg PO BID fluticasone propionate 50 mcg/actuation (Allergy Relief (fluticasone)) 2 sprays intranasal DAILY FreeStyle Yancy 2 [place] (flash glucose scanning reader) TID testing NS FreeStyle Yancy 2 Sensor (flash glucose sensor) TID testing NS gabapentin 300 mg PO TID lancets (FreeStyle Lancets) Use to check fasting blood sugar and another time during the day losartan 50 mg PO DAILY ondansetron 8 mg PO Q12H PRN 30 days semaglutide (Ozempic) 2 mg (0.75 mL) subcut QWEEK Tobacco use date assessed: 09/21/23 Dental Screening Dental Screen Date: 09/21/23 HPI 4 Month F/U - see comments HPI Details Pt is a diabetic, on an ARB and a statin. A1C in office today is 7.0. Microalbumin is up to date. Denies polyuria, polydipsia, and neuropathy. Pt denies any signs and symptoms of hypoglycemia and does know how to correct it. Pt is using the sensor. Pt c/o maxillary/frontal sinus pressure. He does report a lack of taste and smell. He has tried cetirizine which did not help, will send montelukast. Will treat for sinusitis with augmentin. Pt reports loss of appetite and nausea with ozempic use. Will decrease to 1mg and add jardiance 10mg. HTN: pt is extremely stressed today, due to work, will increase his losartan to 100mg from 50mg, will have him monitor his BP at home. Denies any CP, sob, vann, palpitations, blurred vision. [facility] Medical History Diabetic neuropathy GERD (gastroesophageal reflux disease) Lumbago with sciatica, right side Anxiety Hypertension Surgical History Hx of wisdom tooth extraction Family History Father Cancer Mother Heart disease Social History Housing: Condominium Patient Tobacco Use Status: Current everyday Tobacco user Cigarettes Per Day: 7 e-Cigarette/Vaping Use: Never Used Second Hand Smoke Exposure: Yes service: No Current occupational status: employed Current occupation: [employer] Current occupational exposures/hazards: No Cognitive needs: No Hearing needs: No Vision needs: No Questionnaire PHQ-9 Over the last 2 weeks, how often have you been bothered by any of the following problems? 1. Little interest or pleasure in doing things: not at all 2. Feeling down, depressed, or hopeless: not at all 3. Trouble falling or staying asleep, or sleeping too much: not at all 4. Feeling tired or having little energy: not at all 5. Poor appetite or overeating: not at all 6. Feeling bad about yourself - or that you are a failure or have let yourself or your family down: not at all 7. Trouble concentrating on things, such as reading the newspaper or watching television: not at all 8. Moving or speaking so slowly that other people could have noticed. Or the opposite - being so fidgety or restless that you have been moving around a lot more than usual: not at all 9. Thoughts that you would be better off or of hurting yourself in some way: not at all Total score: 0 Depression Screening Interpretation: Negative Depression Screening Done: Yes 49835 - PHQ-9 Billing: Yes Source: Developed by Drs. Ovidio Dobbs, Kane Max and colleagues, with an educational ricardo from [employer] Thrive Questionnaire Date Thrive assessed: 09/21/23 I am a: Patient What is your living situation today?: I have a steady place to live Within the past 12 months, did the food you bought not last and you didn't have the money to get more?: Never true Within the past 12 months, did you worry whether your food would run out before you got money to buy more?: Never true Do you have trouble paying for medicines?: No Do you have trouble getting transportation to medical appointments?: No Do you have trouble paying your heating and electricity bill?: No Do you have trouble taking care of your child, family member or friend?: No Do you have trouble with day-to-day activities such as bathing, preparing meals, shopping, managing finances, etc.?: No Are you currently unemployed and looking for a job?: No Are you interested in more education?: No Please select the resources that you would like help with: Housing/Nursing Home Currently or been in a relationship where the following occur: No concerns reported THRIVE Score: 0 AUDIT C Alcohol Use Questionnaire (AUDIT-C) 1. How often do you have a drink containing alcohol?: Monthly or less 2. How many drinks containing alcohol do you have on a typical day when you are drinking?: 1 or 2 3. How often do you have six or more drinks on one occasion?: Never Total Score: 1 Score Reviewed/Action Taken: Yes JOSIAH-7 AMB Questionnaire JOSIAH-7 Date JOSIAH - 7 assessed: 09/21/23 Feeling nervous, anxious, or on edge: 0 = Not at all Not being able to stop or control worryin = Not at all Worrying too much about different things: 0 = Not at all Trouble relaxin = Not at all Being so restless that it is hard to sit still: 0 = Not at all Becoming easily annoyed or irritable: 0 = Not at all Feeling afraid as if something awful might happen: 0 = Not at all Total JOSIAH-7 score (0-4 normal; 5-9 mild; 10-14 moderate; 15-21 severe): 0 Source: Developed by Drs. Ovidio Dobbs, Kane Max and colleagues, with an educational ricardo from [employer] JOSIAH-7 Assessment Billing JOSIAH-7 Assessment Tool: JOSIAH-7 Assessment 79637 Review of Systems Const Reports as per HPI Physical exam (Primary Care) Vital Signs: Last Vital Signs Pulse 86 02/01/24 09:59 BP 116/110 H 02/01/24 09:59 Pulse Ox 97 02/01/24 09:59 Oxygen Delivery Method Room Air 02/01/24 09:59 BMI result Body Mass Index 30.3 Tobacco/Smoking Status: Tobacco use Status Tobacco use date assessed 09/21/23 02/01/24 09:56 Patient Tobacco Use Status Current everyday Tobacco 02/01/24 09:56 e-Cigarette/Vaping Use Never Used 02/01/24 09:56 PHQ-9: PHQ-9 Score PHQ-9: Total score 0 02/01/24 10:18 Depression Screening Interpretation: Negative Thrive Assessment: Date of Thrive Assessment Date Thrive assessed 09/21/23 02/01/24 09:56 Currently or been in a relationship where the following occur: No concerns reported Const General: cooperative Orientation/consciousness: patient oriented x3 Resp Effort & Inspection: normal respiratory effort Auscultation: clear to auscultation bilaterally Cardio Other: PVC on auscultation (confirmed with ekg) Rate: regular rate Rhythm: regular rhythm Heart sounds: S1 normal heart sound present and S2 normal heart sound present Neuro General: patient oriented x3 Extrem Other: bilat feet: + sensation with use of monofilament, feet intact Psych Appearance: grossly normal Mental Status: mental status grossly normal Speech and movement: Normal speech and movement present Affect: normal affect Attitude: cooperative Thought process: Normal thought process present Thought content: Normal thought content present Insight: Good insight present (Psych) Judgement: Good judgement present (Psych) Results AMB Hemoglobin A1c AMB Hemoglobin A1c 7.0 % Last Edit by ALEX Ambriz on 02/01/24 10:19 Results Reviewed Results Reviewed: Laboratory Last Values Hgb A1c (Clinic) 7.0 % (4.0-6.0) H 02/01/24 10:05 Assessment and Plan Assessment & Plan (1) Diabetes: Code(s): E11.9 - Type 2 diabetes mellitus without complications Plan: A1C done in office, decreasing ozempic and adding jardiance (2) Sinusitis: Code(s): J32.9 - Chronic sinusitis, unspecified Plan: Sending augmentin (3) Hypertension: Code(s): I10 - Essential (primary) hypertension Plan: increasing losartan from 50mg to 100mg, have pt monitor BP at home, sending me values from home via the portal (4) Asymptomatic PVCs: Code(s): I49.3 - Ventricular premature depolarization Plan: EKG used to confirm Plan The patient agreed to the use of a medical imaging tech for this encounter. Scribed for AZUL Dailey by Tanna Lam medical imaging tech, on 02/01/2024 at 10:15 EST. Orders: Orders AMB Hemoglobin A1c Today Z13.9 - Encounter for screening, unspecified AMB EKG-In Office Today E11.9 - Type 2 diabetes mellitus without complications, I49.3 - Ventricular premature depolarization Medications: New montelukast 10 mg PO BEDTIME 30 tabs 4RF amoxicillin-pot clavulanate 875-125 mg 1 tab PO BID 10 days 20 tabs 0RF empagliflozin (Jardiance) 10 mg PO DAILY 90 tabs 0RF Changed From losartan 50 mg PO DAILY 90 tabs 1RF To losartan increased dose due to high blood pressure 100 mg PO DAILY 90 tabs 1RF From semaglutide (Ozempic) 2 mg (0.75 mL) subcut QWEEK 9 mL 1RF To semaglutide 1 mg (0.75 mL) subcut QWEEK 3 mL 1RF Refilled FreeStyle Yancy 2 Sensor (flash glucose sensor) TID testing 6 ea 4RF NS E11.9 - Type 2 diabetes mellitus without complications Coding Level of Care Code Est Pt Level 4 (10486) Diagnoses Diabetes E11.9 Sinusitis J32.9 Hypertension I10 Asymptomatic PVCs I49.3 Additional Codes JOSIAH-7 Assessment Billing - JOSIAH-7 Assessment Tool: JOSIAH-7 Assessment 59897 ([id number])
[2024-02-01 09:59] VITALS: BP 116/110; PULSE 86; O2SAT 97; BMI 30.3
== END 2024-02-01 10:54 | disposition home or self-care (01) ==
PROVIDERS: PCP Nurse Practitioner Family; Visit Provider Nurse Practitioner Family
DX: E11.9 Type 2 diabetes mellitus without complications (principal); J32.9 Chronic sinusitis, unspecified; I10 Essential (primary) hypertension; I49.3 Ventricular premature depolarization
CPT/HCPCS: 83036; 99214

== ENCOUNTER 2024-05-03 12:57 | Outpatient (AMB) | payer OTHER, SELFPAY ==
[2024-05-03 12:58] VITALS: BP 150/100; PULSE 83; O2SAT 98
--- NOTE | 2024-05-03 12:58 | A.OFFPC_ITS ---
Vital Signs 05/03/24 12:58 Height 5 ft 11 in Weight 215 lb BMI 30.0 BP 150/100 H Blood Pressure Location Rt brachial Position Sitting Pulse 83 Pulse Source Pulse Oximeter Pulse Oximetry (%) 98 Intake Visit Reasons: follow up Intake Note: pt is here for follow up, DM Video Games Storywriter Required: No Accompanied by: Self / Same As Patient Allergies GLP-1 agonist Adverse Reaction (Severe, Uncoded 05/03/24 13:34) Nausea Medication List - Last Reconciled 05/03/24 by TAVIA Thompson alcohol swabs (Alcohol Pads) 1 pad topical BID atorvastatin 10 mg PO BEDTIME blood sugar diagnostic (FreeStyle Lite Strips) Use to check fasting blood sugar and another random time during the day. blood-glucose meter (FreeStyle Lite Meter kit) Use to check blood sugar BID empagliflozin 25 mg PO DAILY famotidine 20 mg PO BID fluticasone propionate 50 mcg/actuation (Allergy Relief (fluticasone)) 2 sprays intranasal DAILY FreeStyle Yancy 2 [place] (flash glucose scanning reader) TID testing NS FreeStyle Yancy 2 Sensor (flash glucose sensor) TID testing NS gabapentin 300 mg PO TID lancets (FreeStyle Lancets) Use to check fasting blood sugar and another time during the day montelukast 10 mg PO BEDTIME ondansetron 8 mg PO Q12H PRN 30 days Tobacco use date assessed: 09/21/23 Dental Screening Dental Screen Date: 09/21/23 HPI follow up HPI Details Pt is a diabetic, on a statin. A1C in office today is . Due for microalbumin, will order. Denies polyuria, polydipsia, and neuropathy. Pt denies any signs and symptoms of hypoglycemia and does know how to correct it. Pt's ozempic was stopped due to nausea. He can not tolerate GLP-1 agonists. Pt reports that he is no longer nauseous. His jardiance was increased. Pt reports that his blood sugar is spiking up to 240s-250s daily. Will start lantus 10 units. Eye exam is up to date. Pt is following up with ENT due to a deviated septum. [facility] Medical History Diabetic neuropathy GERD (gastroesophageal reflux disease) Lumbago with sciatica, right side Anxiety Hypertension Surgical History Hx of wisdom tooth extraction Family History Father Cancer Mother Heart disease Social History Housing: Condominium Patient Tobacco Use Status: Current everyday Tobacco user Cigarettes Per Day: 7 e-Cigarette/Vaping Use: Never Used Second Hand Smoke Exposure: Yes service: No Current occupational status: employed Current occupation: [employer] Current occupational exposures/hazards: No Cognitive needs: No Hearing needs: No Vision needs: No Questionnaire PHQ-9 Over the last 2 weeks, how often have you been bothered by any of the following problems? 1. Little interest or pleasure in doing things: not at all 2. Feeling down, depressed, or hopeless: not at all 3. Trouble falling or staying asleep, or sleeping too much: not at all 4. Feeling tired or having little energy: not at all 5. Poor appetite or overeating: not at all 6. Feeling bad about yourself - or that you are a failure or have let yourself or your family down: not at all 7. Trouble concentrating on things, such as reading the newspaper or watching television: not at all 8. Moving or speaking so slowly that other people could have noticed. Or the opposite - being so fidgety or restless that you have been moving around a lot more than usual: not at all 9. Thoughts that you would be better off or of hurting yourself in some way: not at all Total score: 0 Depression Screening Interpretation: Negative Depression Screening Done: Yes 45386 - PHQ-9 Billing: Yes Source: Developed by Drs. Ovidio Dobbs, Meghana Carey, Kane Arzate and colleagues, with an educational ricardo from [employer]. Thrive Questionnaire Date Thrive assessed: 01/26/24 JOSIAH-7 AMB Questionnaire JOSIAH-7 Date JOSIAH - 7 assessed: 09/21/23 Source: Developed by Drs. Ovidio Dobbs, Kane Max and colleagues, with an educational ricardo from [employer] Review of Systems Const Reports as per HPI Physical exam (Primary Care) Vital Signs: Last Vital Signs Pulse 83 05/03/24 12:58 BP 150/100 H 05/03/24 12:58 Pulse Ox 98 05/03/24 12:58 BMI result Body Mass Index 30.0 Tobacco/Smoking Status: Tobacco use Status Tobacco use date assessed 09/21/23 05/03/24 13:00 Patient Tobacco Use Status Current everyday Tobacco 05/03/24 13:00 e-Cigarette/Vaping Use Never Used 05/03/24 13:00 PHQ-9: PHQ-9 Score PHQ-9: Total score 0 05/03/24 13:15 Depression Screening Interpretation: Negative Thrive Assessment: Date of Thrive Assessment Date Thrive assessed 01/26/24 05/03/24 13:00 Const General: cooperative Orientation/consciousness: patient oriented x3 Resp Effort & Inspection: normal respiratory effort Auscultation: clear to auscultation bilaterally Cardio Rate: regular rate Rhythm: regular rhythm Heart sounds: S1 normal heart sound present and S2 normal heart sound present Neuro General: patient oriented x3 Extrem Other: bilat feet: + sensation with use of monofilament, feet intact Psych Appearance: grossly normal Mental Status: mental status grossly normal Speech and movement: Normal speech and movement present Affect: normal affect Attitude: cooperative Thought process: Normal thought process present Thought content: Normal thought content present Insight: Good insight present (Psych) Judgement: Good judgement present (Psych) Coding Level of Care Code Est Pt Level 3 (20647) Diagnoses Diabetes E11.9 Assessment & Plan Assessment & Plan (1) Diabetes: Code(s): E11.9 - Type 2 diabetes mellitus without complications Category: Medical Plan: starting lantus 10 units. Pt will contact me via portal with values, so lantus can be adjusted Plan The patient agreed to the use of a medical reimbursement specialist for this encounter. Scribed for AZUL Dailey by Tanna Lam medical reimbursement specialist, on 05/03/2024 at 13:15 EST. Orders: Orders AMB Hemoglobin A1c Today Z13.9 - Encounter for screening, unspecified Complete Blood Count Auto Diff Today E11.9 - Type 2 diabetes mellitus without complications Comprehensive [place]. Panel Fast Today E11.9 - Type 2 diabetes mellitus without complications UA CC w/rflx Micro + Cult Today E11.9 - Type 2 diabetes mellitus without complications TSH reflex Free T4 Today E11.9 - Type 2 diabetes mellitus without complications Lipid Panel Today E11.9 - Type 2 diabetes mellitus without complications Microalbumin, Random (w Creat) Today E11.9 - Type 2 diabetes mellitus without complications Medications: New insulin glargine (Lantus Solostar U-100 Insulin) 10 units (0.1 mL) subcut QPM 15 mL 1RF pen needle, diabetic (Easy Comfort Pen [place]) Qpm 100 ea 1RF diabetes
== END 2024-05-03 13:51 | disposition home or self-care (01) ==
PROVIDERS: PCP Nurse Practitioner Family; Visit Provider Nurse Practitioner Family
DX: Z13.9 Encounter for screening, unspecified (principal)

== ENCOUNTER → 2024-05-03 12:57 | Outpatient (BNVA) | payer OTHER, SELFPAY | PROVIDERS: PCP Nurse Practitioner Family; Visit Provider Nurse Practitioner Family | DX: E11.9 Type 2 diabetes mellitus without complications (principal) | CPT/HCPCS: 83036; 96127 ==

== ENCOUNTER 2024-05-24 12:44 | Outpatient (AMB) | payer OTHER, SELFPAY ==
--- NOTE | 2024-05-24 13:02 | A.OFFVIS_ITS ---
Vital Signs 05/24/24 13:06 Height 5 ft 11 in Weight 218 lb 4.122 oz BMI 30.4 BP 124/80 Blood Pressure Location Rt brachial Position Sitting Pulse 74 Pulse Source Pulse Oximeter Intake Visit Reasons: T2DM/CONFIRMED Intake Note: NEW Patient presents today to establish treatment for Type 2 Diabetes Mellitus: Last Diabetic eye exam was on: Two months ago Last Podiatry exam was on: Does not see a Coil Finisher Most recent HbA1c: 7.0%, 05/03/2024 Random Glucose- 220 mg/dL, Today Roof Fitter Required: No Accompanied by: Self / Same As Patient Allergies semaglutide [From Ozempic] Adverse Reaction (Mild, Verified 05/24/24 13:13) Nausea Medication List - Last Reconciled 05/24/24 by Vale Teran MD alcohol swabs (Alcohol Pads) 1 pad topical BID atorvastatin 10 mg PO BEDTIME blood sugar diagnostic (FreeStyle Lite Strips) Use to check fasting blood sugar and another random time during the day. blood-glucose meter (FreeStyle Lite Meter kit) Use to check blood sugar BID empagliflozin 25 mg PO DAILY famotidine 20 mg PO BID fluticasone propionate 50 mcg/actuation (Allergy Relief (fluticasone)) 2 sprays intranasal DAILY FreeStyle Yanyc 2 [place] (flash glucose scanning reader) TID testing NS FreeStyle Yancy 2 Sensor (flash glucose sensor) TID testing NS gabapentin 300 mg PO TID insulin glargine (Lantus Solostar U-100 Insulin) 10 units (0.1 mL) subcut QPM lancets (FreeStyle Lancets) Use to check fasting blood sugar and another time during the day montelukast 10 mg PO BEDTIME ondansetron 8 mg PO Q12H PRN 30 days pen needle, diabetic (Easy Comfort Pen [place]) Qpm HPI Comments Details: The patient is a 43 year old male presenting for diabetes Medical history: neuropathy, GERD, allergies/asthma Diagnosed at age 41 Current medications: Jardiance -this was increased from 10 to 25mg last month, lantus 10 units (started last month). Past medications: ozempic -did not tolerate He went off ozempic 2mg ~2 months ago at which time his glucose became poorly controlled with numbers in 200s-300s. He stopped due to nausea and being unable to tolerate meals. He experienced nausea even at lower doses. He was on trulicity awhile back but stopped this medication due to the shortage. Microvascular/macrovascular complications: No retinopathy. +neuropathy-stable on gabapentin Family history: mom diabetes Sees eye-utd Sees podiatry-utd ROS CONSTITUTIONAL: Denies weight loss, fever and chills. HEENT: Denies changes in vision and hearing. RESPIRATORY: Denies SOB and cough. CV: Denies palpitations and CP GI: Denies abdominal pain, nausea, vomiting and diarrhea. : Denies dysuria and urinary frequency. MSK: Denies new myalgia and joint pain. SKIN: Denies rash and pruritus. NEUROLOGICAL: Denies headache PSYCHIATRIC: Denies recent changes in mood. PHYSICAL EXAM: GENERAL: Alert and oriented x 3. NAD EYES: EOMI. Anicteric. HENT: Moist mucous membranes. No scleral icterus. No cervical lymphadenopathy. LUNGS: Clear to auscultation bilaterally. CARDIOVASCULAR: Regular rate and rhythm. No murmur. No JVD. ABDOMEN: Soft, non-tender +bs EXTREMITIES: No edema. Non-tender. SKIN: No rashes or lesions. Warm. NEUROLOGIC: No focal neurological deficits. CN II-XII grossly intact PSYCHIATRIC: Cooperative. Appropriate mood and affect [facility] Medical History Diabetic neuropathy GERD (gastroesophageal reflux disease) Lumbago with sciatica, right side Anxiety Hypertension Surgical History Hx of wisdom tooth extraction Family History Father Cancer Mother Heart disease Social History Housing: Condominium Patient Tobacco Use Status: Current everyday Tobacco user Cigarettes Per Day: 7 e-Cigarette/Vaping Use: Never Used Second Hand Smoke Exposure: Yes service: No Current occupational status: employed Current occupation: [employer] Current occupational exposures/hazards: No Cognitive needs: No Hearing needs: No Vision needs: No Assessment & Plan Assessment & Plan (1) Insulin-requiring or dependent type II diabetes mellitus: Code(s): E11.9 - Type 2 diabetes mellitus without complications; Z79.4 - intermediate frame tender (current) use of insulin Category: Medical Plan: Can stay on lantus 20 u Continue jardiance Start trulicity 0.75 weekly. May need to increase-follow up 3-4 weeks (2) Diabetic neuropathy: Code(s): E11.40 - Type 2 diabetes mellitus with diabetic neuropathy, unspecified Category: Medical Qualifiers: Diabetes mellitus type: type 2 Diabetes mellitus complication detail: diabetic polyneuropathy Qualified Code(s): E11.42 - Type 2 diabetes mellitus with diabetic polyneuropathy Plan: stable oon gabapentin Orders: Orders Pathologist Review - CBC Today E11.40 - Type 2 diabetes mellitus with diabetic neuropathy, unspecified, E11.9 - Type 2 diabetes mellitus without complications, Z79.4 - intermediate frame tender (current) use of insulin Islet Cell Antibody Scrn/Titer Today E11.9 - Type 2 diabetes mellitus without complications, Z79.4 - shelter (current) use of insulin Medications: New dulaglutide (Trulicity) 0.75 mg (0.5 mL) subcut QWEEK 2 mL 3RF Coding Level of Care Code Est Pt Level 4 (31777) Diagnoses Insulin-requiring or dependent type II diabetes mellitus E11.9; Z79.4 Diabetic polyneuropathy associated with type 2 diabetes mellitus E11.42 Diabetes mellitus type: type 2 Diabetes mellitus complication detail: diabetic polyneuropathy
[2024-05-24 13:06] VITALS: BP 124/80; PULSE 74; BMI 30.4
[2024-05-24 13:15] LABS: Glucose, Whole Blood 220 mg/dL (60-115)
== END 2024-05-24 13:34 | disposition home or self-care (01) ==
PROVIDERS: PCP Nurse Practitioner Family; Visit Provider Internal Medicine
DX: E11.42 Type 2 diabetes mellitus with diabetic polyneuropathy (principal); Z79.4 Long term (current) use of insulin

== ENCOUNTER → 2024-05-24 12:44 | Outpatient (BNVA) | payer OTHER, SELFPAY | PROVIDERS: PCP Nurse Practitioner Family; Visit Provider Internal Medicine | DX: E11.42 Type 2 diabetes mellitus with diabetic polyneuropathy (principal); Z79.4 Long term (current) use of insulin | CPT/HCPCS: 82947 ==

== ENCOUNTER 2024-06-14 12:55 | Outpatient (AMB) | payer OTHER, SELFPAY ==
--- NOTE | 2024-06-14 12:56 | A.OFFVIS_ITS ---
Vital Signs 06/14/24 12:58 Height 5 ft 11 in Weight 218 lb 4.122 oz BMI 30.4 BP 122/82 Blood Pressure Location Rt brachial Position Sitting Pulse 82 Pulse Source Pulse Oximeter Intake Visit Reasons: f/up blood glucose Intake Note: Patient presents here today for follow-up on Type 2 Diabetes Mellitus: Last Diabetic eye exam was on: 03/2024 Last Podiatry exam was on: Does not see a Communications Executive Most recent HbA1c: 7.0%, 05/03/2024 Random Glucose- 168 mg/dL, Today Regional Flatbed Truck Driver Required: No Accompanied by: Self / Same As Patient Allergies semaglutide [From Ozempic] Adverse Reaction (Mild, Verified 06/14/24 12:58) Nausea HPI Comments Details: The patient is a 43 year old male presenting for diabetes Medical history: neuropathy, GERD, allergies/asthma Diagnosed at age 41 Current medications: Jardiance 25mg daily, lantus 10 units, trulicity 0.75mg daily Past medications: ozempic -did not tolerate 2/2 nausea and poor glucose control Freestyle 2. Forgetting to scan at times 36% active. TGT 50% no lows avg 188 Last A1C 05/03 of 7/0% Microvascular/macrovascular complications: No retinopathy. +neuropathy-stable on gabapentin Family history: mom diabetes Sees eye-utd Sees podiatry-utd ROS CONSTITUTIONAL: Denies weight loss, fever and chills. HEENT: Denies changes in vision and hearing. RESPIRATORY: Denies SOB and cough. CV: Denies palpitations and CP GI: Denies abdominal pain, nausea, vomiting and diarrhea. : Denies dysuria and urinary frequency. MSK: Denies new myalgia and joint pain. SKIN: Denies rash and pruritus. NEUROLOGICAL: Denies headache PSYCHIATRIC: Denies recent changes in mood. PHYSICAL EXAM: GENERAL: Alert and oriented x 3. NAD EYES: EOMI. Anicteric. HENT: Moist mucous membranes. No scleral icterus. No cervical lymphadenopathy. LUNGS: Clear to auscultation bilaterally. CARDIOVASCULAR: Regular rate and rhythm. No murmur. No JVD. ABDOMEN: Soft, non-tender +bs EXTREMITIES: No edema. Non-tender. SKIN: No rashes or lesions. Warm. NEUROLOGIC: No focal neurological deficits. CN II-XII grossly intact PSYCHIATRIC: Cooperative. Appropriate mood and affect [facility] Medical History Diabetic neuropathy GERD (gastroesophageal reflux disease) Lumbago with sciatica, right side Anxiety Hypertension Surgical History Hx of wisdom tooth extraction Family History Father Cancer Mother Heart disease [facility] Patient Tobacco Use Status: Current everyday Tobacco user Cigarettes Per Day: 7 e-Cigarette/Vaping Use: Never Used Second Hand Smoke Exposure: Yes service: No Current occupational status: employed Current occupation: [employer] Current occupational exposures/hazards: No Cognitive needs: No Hearing needs: No Vision needs: No Physical Exam Vital Signs: Last Vital Signs Pulse 82 06/14/24 12:58 BP 122/82 06/14/24 12:58 BMI result Body Mass Index 30.4 Assessment & Plan Assessment & Plan (1) Insulin-requiring or dependent type II diabetes mellitus: Code(s): E11.9 - Type 2 diabetes mellitus without complications; Z79.4 - penitentiary (current) use of insulin Category: Medical Plan: A1C controlled still some room for slight improvement. will increase trulicity to 1.5mg weekly. continue other medications as prescribed. follow up 3 months or sooner as needed Medications: New FreeStyle Yancy 3 [place] (blood-glucose meter,continuous) As directed 1 ea 0RF NS E11.9 - Type 2 diabetes mellitus without complications, Z79.4 - household appliance mechanic (current) use of insulin dulaglutide (Trulicity) 1.5 mg (0.5 mL) subcut QWEEK 2 mL 3RF FreeStyle Yancy 3 Plus Sensor (blood-glucose sensor) As directed 1 ea 3RF NS E11.9 - Type 2 diabetes mellitus without complications, Z79.4 - household appliance mechanic (current) use of insulin Discontinued FreeStyle Yancy 2 [place] (flash glucose scanning reader) Discontinued Reason: Doctor's Order TID testing 1 ea 2RF NS E11.9 - Type 2 diabetes mellitus without complications FreeStyle Yancy 2 Sensor (flash glucose sensor) Discontinued Reason: Doctor's Order TID testing 6 ea 4RF NS E11.9 - Type 2 diabetes mellitus without complications dulaglutide (Trulicity) Discontinued Reason: Doctor's Order 0.75 mg (0.5 mL) subcut QWEEK 2 mL 3RF Coding Level of Care Code Est Pt Level 4 (16536) Diagnoses Insulin-requiring or dependent type II diabetes mellitus E11.9; Z79.4
[2024-06-14 12:58] VITALS: BP 122/82; PULSE 82; BMI 30.4
[2024-06-14 13:20] LABS: Glucose, Whole Blood 168 mg/dL (60-115)
--- OUTSIDE RECORDS SUMMARY | 2024-06-20 02:14 | XMS_ITS ---
Author Organization [facility] Sai khushboo [place] Address [address] [place] [address] Care Team Providers Care Plug Machine Operator Name Role Phone Morro Marmolejo Primary Care Provider Unav ailable Black, Felicitas Unavailable [phone] Allergies No Known Allergies REASON FOR VISIT pt satates last pcp visit 06/2023, Open sore - Toe Medications Medication SIG (Take, Route, Frequency, Duration) Notes Start Date End Date Status Cephalexin 500 MG 1 capsule Orally twi ce a day for 10 days 07/15/2023 Not-Taking Cephalexin 500 MG 1 capsule Orally twi ce a day for 10 days 07/29/2023 Not-Taking Ozempic 1 mg Active Famotidine 20 MG 1 tablet at bedtime as needed Orally Once a day Active Gabapentin 300mg three times a day or ally daily Active Losartan Potassium 50 MG 1 tablet Orally Once a day Active Social History Tobacco Use: Social History Observation Description Date Details (start date - stop date) Current Smoker NA - NA Tobacco Use/Smoking Question Answer Notes Are you a: current smoker How often do you smoke cigarettes? every day How many cigarettes a day do you smoke? 6-10 Alcohol Screen Question Answer Notes Did you have a drink containing alcohol in the p ast year? No Points 0 Interpretation Negative Tobacco use other than smoking: Question Answer Notes Are you an other tobacco user? Yes V apes Problems Problem Type SNOMED Code ICD Code Onset Dates Problem Status W/U Status Risk Notes Problem Ulcer of toe of left foot (disorder) (77012344772 687895) Skin ulcer of toe of left foot, limited to breakdown of skin (L97.521) Active confirmed Problem Ulcer of toe of right foot (disorder) (79928922410 079840) Skin ulcer of toe of right foot, limited to breakdown of skin (L97.511) Active confirmed Vital Signs Height 5ft 11in in 09/14/2023 Weight 210 lbs 09/14/2023 BMI 29.29 kg/m2 09/14/2023 Procedures Procedure Date Ordered Date Performed Result Body Sit e 12791- Debride <25 sq cm 09/14/2023 N/A Encounters Encounter Location Date Provider Diagnosis [facility] [address] 09/14/2023 Felicitas Black Skin ulcer of toe of right foot, limited to breakdown of skin L97.511 and Type 2 diabetes mellitus with diabetic polyneuropathy E11.42 Assessments Encounter Date Diagnosis (ICD Code) Assessment Notes Treatment Notes Treatment Clinical Notes Section Notes 09/14/2023 Skin ulcer of toe of right foot, limited to breakdown of skin (ICD-10 - L97.511) Patient Educated with: WOUND CARE INSTRUCTIONS. pdf (WOUND CARE INSTRUCTIONS. pdf) 09/14/2023 Type 2 diabetes mellitus with diabetic polyneuropathy (ICD-10 - E11.42) 09/14/2023 Other Plan Of Treatment Treatment Notes Assessment Notes Skin ulcer of toe of right f oot, limited to breakdown of skin Patient Educated with: WOUND CARE INSTRUCTIONS.pdf (WOUND CARE INSTRUCTIONS.pdf) Pending Test Test Name Order Date 02196- Debride <25 sq cm 09/14/2023 Next Appt Details Follow Up: prn, Reason: Procedure Notes * Category Sub-Category Detail Notes Debride skin< 25 sq cm Open wound Physician of record performed open wound selective debridement of first 25 sq cm or less, of devitilized necrotic/nonviable soft tissue, fibrin, and exudate extending from the epidermis through the dermis, utilizing sharp dissection with sterile 15 blade, and/or tissue nippers. Sterile antibiotic dressing applied, ANESTHESIA- was accomplished TOPICALLY with Lidocaine Hydrochloride Jelly 2 percent. Hemostasis was achieved through direct pressure. Post debridement measurements: 6 mm x 3mm x 2mm. Character of the wound post debridement is stable (71097) Progress Notes * Donte MAY: [birth year] (43 yo M)Acc No.[id number]:09/14/2023 Progress Notes Patient:?Donte May Provider:?Felicitas Frederick DPM :1980???Age:43 Y???Sex:Male Cristi e:09/14/2023 Address:[address] [place] [address], [place] [address] Pcp:Morro Perez NP-CUONG Subjective: * Chief Complaints: * ???Pt satates last pcp visit 06/2023Open sore - Toe * HPI: ???Skin problems:?Treatments:?Local care consisting of daily distilled water wound cleanse, topical antibiotic as recommended, application of sterile dressing, offloading/pressure reduction via rest, shoe modification, insert modification, accommodative padding, assisted ambulation via cane/ crutch/ walker/ wheel chair/ knee scooter, and surgical debridement.? * Medical History:? * Surgical History:?No Surgica l History documented. * Hospitalization/Major Diagno stic Procedure:?No Hospitalization History. * Family History:?Mother: bailey ocampo, diagnosed with Diabetic - NIDDM, Unspecified essential hypertension.?Father: .? * Social History:?Tobacco Use:?Tobacco Use/Smoking?Are you a:?current smoker ?How often do you smoke cigarettes??every day ?How many cigarettes a day do you smoke??6-10 ?Tobacco use other than smoking?Are you an other tobacco user??Yes Vapes ???Drugs/Alcohol:?Drugs?Have you used drugs other than those for medical reasons in the past 12 months??No ?Alcohol Screen?Did you have a drink containing alcohol in the past year??No ?Points?0 ?Interpretation?Negative * Medications:?TakingGabapenti n 300mg tablets three times a day orally dailyFamotidine 20 MG Tablet 1 tablet at bedtime as needed Orally Once a dayLosartan Potassium 50 MG Tablet 1 tablet Orally Once a dayOzempic , Notes: 1 mgTaking Gabapentin 300mg tablets three times a day orally dailyTaking Famotidine 20 MG Tablet 1 tablet at bedtime as needed Orally Once a dayTaking Losartan Potassium 50 MG Tablet 1 tablet Orally Once a dayTaking Ozempic , Notes: 1 mgNot-Taking/PRNCephalexin 500 MG Capsule 1 capsule Orally twice a dayCephalexin 500 MG Capsule 1 capsule Orally twice a dayMedication List reviewed and reconciled with the patientNot-Taking/PRN Cephalexin 500 MG Capsule 1 capsule Orally twice a dayNot-Taking/PRN Cephalexin 500 MG Capsule 1 capsule Orally twice a dayMedication List reviewed and reconciled with the patient * Allergies:?N.K.D.A.yes[Aller gies Verified] Objective: * Vitals:?Ht: 5ft 11in, Wt: 21 0, BMI:29.29, Shoe size: 10.5, BS: 121. * ???Past Orders: ???Lab:HEMOGLOBIN A1C (GLYCO HEMOGLOBIN) (Order Date - 04/11/2023) (Collection Date - 04/11/2023) ? Value Reference Range ?HEMOGLOBIN A1C (HH) 6.9 * Examination: ???Ophthalmology Referral: ?DIABETES EYE EXAM?Dermatologic: ?ULCER:? LOCATION,T5, SIZE, 10mm X 5mm X 2mm, BASE, granular, RIM, hyperkeratotic, UNDERMINING, absent, TRACKING, Full thickness breakdown of skin, DRAINAGE, serosanguineous, mild, NECROTIC TISSUE, loosely-adherent, yellow slough, MALODOR, absent, CALOR, absent, ERYTHEMA, absent, PAIN ON PALPATION, absent.? Assessment: * Assessment: 1.?Skin ulcer of toe of righ t foot, limited to breakdown of skin - L97.511, Response to treatment?2.?Type 2 diabetes mellitus with diabetic polyneuropathy - E11.42? Plan: * Treatment: * Procedures:?Debride skin< 25 sq cm:?Open wound?Physician of record performed open wound selective debridement of first 25 sq cm or less, of devitilized necrotic/nonviable soft tissue, fibrin, and exudate extending from the epidermis through the dermis, utilizing sharp dissection with sterile 15 blade, and/or tissue nippers. Sterile antibiotic dressing applied, ANESTHESIA- was accomplished TOPICALLY with Lidocaine Hydrochloride Jelly 2 percent. Hemostasis was achieved through direct pressure. Post debridement measurements: 6 mm x 3mm x 2mm. Character of the wound post debridement is stable (05282).? * Procedure Codes:?02223 ACTIV E WOUND CARE/20 CM OR <, Modifiers: T5 * Preventive Medicine:? ??Counseling:?Ulcer:?Given recent successful results to treatment, The patient is to cont the local wound care as directed.? * Follow Up:?prn * Images: * Sign off status: Completed true * Provider:?Fleicitas Frederick DPM Date:?2023 Generated for Mackenzie cecilia/Rosita/Siminitting on:?06/20/2024 02:14 AM EST History and Physical Notes * HPI (History of Present Illness) Category Sub-Category Detail Notes Category Not es Skin problems Treatments: Local care consi sting of daily distilled water wound cleanse, topical antibiotic as recommended, application of sterile dressing, offloading/pressure reduction via rest, shoe modification, insert modification, accommodative padding, assisted ambulation via cane/ crutch/ walker/ wheel chair/ knee scooter, and surgical debridement Examination Category Sub-Category Detail Notes Category Not es Dermatologic ULCER: LOCATION,T5, SIZ E, 10mm X 5mm X 2mm, BASE, granular, RIM, hyperkeratotic, UNDERMINING, absent, TRACKING, Full thickness breakdown of skin, DRAINAGE, serosanguineous, mild, NECROTIC TISSUE, loosely-adherent, yellow slough, MALODOR, absent, CALOR, absent, ERYTHEMA, absent, PAIN ON PALPATION, absent Ophthalmology Referral DIABETES EYE EXAM Diabeti c Retinopathy Screening:: No
--- OUTSIDE RECORDS SUMMARY | 2024-06-20 02:14 | XMS_ITS ---
[facility] Address [address] [place] [address] Care Team Providers Care Ad Clerk Name Role Phone Morro Marmolejo Primary Care Provider Unav ailable Felicitas Frederick Unavailable [phone] Encounters Encounter Location Date Provider Diagnosis [address] [address] 03/16/2024 Felicitas Frederick Plan Of Treatment No Information Progress Notes * Donte MAYDOB: [birth year] (44 yo M)Acc No.[id number]:03/16/2024 Progress Note Patient:JenniferDonte MAY Provider:?Felicitas Frederick DPM :1980???Age:43 Y???Sex:Male Cristi e:03/16/2024 Address:[address] [place] [address], [facility] Pcp:MAGDA Dailey Subjective: * Chief Complaints: * ??? * Medical History:? Objective: * Vitals:? Assessment: Plan: * Treatment: * Images: * The named appointment provid er may or may not be the originator of this progress note, and it is not deemed complete until electronically signed by the appointment provider. Sign off status: Pending * Provider:?Felicitas Frederick DPM Date:?2023 Generated for Mackenziei cecilia/Rosita/eTransmitting on:?06/20/2024 02:13 AM EST
--- OUTSIDE RECORDS SUMMARY | 2024-06-20 02:14 | XMS_ITS | Patient Health Record ---
Author Organization [facility] Address [address] [facility] [place] [address] Care Team Providers Care Government Sales Manager Name Role Phone Morro Marmolejo Primary Care Provider Unav ailable Black, Felicitas Unavailable [phone] Allergies No Known Allergies Reason For Referral No Information Medications Medication SIG (Take, Route, Frequency, Duration) Notes Start Date End Date Status Cephalexin 500 MG 1 capsule Orally twi ce a day for 10 days 07/15/2023 Not-Taking Cephalexin 500 MG 1 capsule Orally twi ce a day for 10 days 07/29/2023 Not-Taking Ozempic 1 mg Active Losartan Potassium 50 MG 1 tablet Orally Once a day Active Famotidine 20 MG 1 tablet at bedtime as needed Orally Once a day Active Gabapentin 300mg three times a day or ally daily Active Immunizations Vaccine Route Administration Date Status Comme nts Influenza Unknown 01/17/2023 Refused Social History Tobacco Use: Social History Observation [...] Problem Status W/U Status Risk Notes Problem Acquired hammer toe of right foot (3602946869121096 ) Other hammer toe(s) (acquired), right foot (M20.41) Active confirmed Problem Acquired hammer toe of left foot (3138888763453719 ) Other hammer toe(s) (acquired), left foot (M20.42) Active confirmed Problem Polyneuropathy due to type 2 diabetes mellitus (970732888) Type 2 diabetes mellitus with diabetic polyneuropathy (E11.42) Active confirmed Problem Ulcer of toe of right foot (disorder) (6253433622403232 1) Skin ulcer of toe of right foot, limited to breakdown of skin (L97.511) Active confirmed Problem Ulcer of toe of left foot (disorder) (5718395425502438 2) Skin ulcer of toe of left foot, limited to breakdown of skin (L97.521) Active confirmed Problem Skin ulcer of to e of right foot with fat layer exposed (L97.512) Active confirmed Problem Ulcer of toe (998386599) Skin ulcer of toe of left foot with fat layer exposed (L97.522) Active confirmed Vital Signs Height 5ft 11in in 09/14/2023 Weight 210 lbs 09/14/2023 BMI 29.29 kg/m2 09/14/2023 Procedures Procedure Date Ordered Date Performed Result Body Sit e 08928-WCQ 07/15/2023 N/A 77252-IKA 07/29/2023 N/A 29579-LXQAEHX SKIN/TISSUE 07/29/2023 N/A 96868-IUSCWTS SKIN/TISSUE 08/12/2023 N/A 61552- Debride <25 sq cm 09/14/2023 N/A Encounters Encounter Location Date Provider Diagnosis [facility] Connell [address] [place] [address] [place] [address] 07/15/2023 Felicitas Black Ingrown nail L60.0 Art[facility] Con[facility] [place] [address] 07/29/2023 Felicitas Black Skin ulcer of toe of left foot with fat layer exposed L97.522 ; Ingrown nail L60.0 ; Pain in left toe(s) M79.675 ; Pain in right toe(s) M79.674 and Type 2 diabetes mellitus with diabetic polyneuropathy E11.42 [facility] Connell [address] [place] [address] [place] [address] 08/12/2023 Felicitas Black Skin ulcer of toe of right foot with fat layer exposed L97.[address] [facility] [address] 09/14/2023 Felicitas Black Skin ulcer of toe of right foot, limited to breakdown of skin L97.511 and Type 2 diabetes mellitus with diabetic polyneuropathy E11.[address] [facility] [address] 03/14/2024 Felicitas Black Assessments Encounter Date Diagnosis (ICD Code) Assessment Notes Treatment Notes Treatment Clinical Notes Section Notes 07/15/2023 Ingrown nail (ICD-10 - L60.0) 07/29/2023 Ingrown nail (ICD-10 - L60.0) 07/29/2023 Skin ulcer of toe of left foot with fat layer exposed (ICD-10 - L97.522) Patient Educated with: WOUND CARE INSTRUCTIONS. pdf (WOUND CARE INSTRUCTIONS. pdf) 09/14/2023 Skin ulcer of toe of right foot, limited to breakdown of skin (ICD-10 - L97.511) Patient Educated with: WOUND CARE INSTRUCTIONS. pdf (WOUND CARE INSTRUCTIONS. pdf) 07/29/2023 Pain in left toe(s) (ICD-10 - M79.675) 08/12/2023 Skin ulcer of toe of right foot with fat layer exposed (ICD-10 - L97.512) Patient Educated with: WOUND CARE INSTRUCTIONS. pdf (WOUND CARE INSTRUCTIONS. pdf) 09/14/2023 Type 2 diabetes mellitus with diabetic polyneuropathy (ICD-10 - E11.42) 07/29/2023 Pain in right toe(s) (ICD-10 - M79.674) 07/29/2023 Type 2 diabetes mellitus with diabetic polyneuropathy (ICD-10 - E11.42) 08/12/2023 Other 09/14/2023 Other Plan Of Treatment Pending Test Test Name Order Date [id number]-WKE 07/15/2023 08234-HLT 07/29/2023 92604- Debride <25 sq cm 09/14/2023 72044-UPGGVIS SKIN/TISSUE 07/29/2023 33892-FBAJWEU SKIN/TISSUE 08/12/2023 I0278-LGPDOMUG DYSTROPHIC NAILS ANY # G3372-LDAJLSIY DYSTROPHIC NAILS ANY # Insurance Providers Payer Name Payer Address Payer Phone Subscriber Number Group Number Insured Name Patient Relationship to Insured Coverage Start Date Coverage End Date [facility] [address] [place] [address] [id number] Donte May Self - patient is the insured Medical (General) History Medical History History ICD Code Back,Hip,and Knee pain Broken bones covid-19 type II diabetes Headaches/Migraines High blood pressure Reflux ( GERD) Chicken pox Surgical History Surgery Date(Month/Year)
--- OUTSIDE RECORDS SUMMARY | 2024-06-20 02:14 | XMS_ITS ---
Author Organization [facility] Address [address] [place] [address] Care Team Providers Care Chargemaster Specialist Name Role Phone Morro Marmolejo Primary Care Provider Unav ailable Black, Felicitas Unavailable [phone] REASON FOR VISIT 03/16/24 cx Encounters Encounter Location Date [facility] [address] 03/14/2024 Felicitas Black Plan Of Treatment No Information Progress Notes * Donte CARDENASDOB: [birth year] (43 yo M)Acc No.[id number]:03/14/2024 Patient:?Donte Cardenas :1980???Age:43 Y???Sex:Male Address:[address] [place] [address], [place] [address] * true * Date:? Generated for Printi ng/Fadocg/eTransmitting on:?06/20/2024 02:13 AM EST
== END 2024-06-14 13:22 | disposition home or self-care (01) ==
PROVIDERS: PCP Nurse Practitioner Family; Visit Provider Internal Medicine
DX: E11.9 Type 2 diabetes mellitus without complications (principal); Z79.4 Long term (current) use of insulin

== ENCOUNTER → 2024-06-14 12:55 | Outpatient (BNVA) | payer OTHER, SELFPAY | PROVIDERS: PCP Nurse Practitioner Family; Visit Provider Internal Medicine | DX: E11.40 Type 2 diabetes mellitus with diabetic neuropathy, unspecified (principal); Z79.4 Long term (current) use of insulin; Z79.899 Other long term (current) drug therapy | CPT/HCPCS: 82947 ==

== ENCOUNTER 2024-09-19 08:21 | Outpatient (AMB) | payer OTHER, SELFPAY ==
[2024-09-19 08:24] VITALS: BP 142/90; PULSE 90; O2SAT 97; BMI 30.1
--- NOTE | 2024-09-19 08:24 | A.OFFVIS_ITS ---
Vital Signs 09/19/24 08:24 Height 5 ft 11 in Weight 216 lb 0.848 oz BMI 30.1 BP 142/90 H Blood Pressure Location Rt brachial Position Sitting Pulse 90 Pulse Source Pulse Oximeter Pulse Oximetry (%) 97 Oxygen Delivery Method Room Air Intake Visit Reasons: DM Intake Note: Patient presents here today for follow-up on Type 2 Diabetes Mellitus: Last Diabetic eye exam was on: 03/2024 Last Podiatry exam was on: Does not see a [employer] Drier Most recent HbA1c: 7.5%, 09/19/2024 Random Glucose- 210 mg/dL, Today Senior Principal Required: No Accompanied by: Self / Same As Patient Allergies semaglutide [From Ozempic] Adverse Reaction (Mild, Verified 09/19/24 08:25) Nausea HPI Comments Details: The patient is a 44 year old male presenting for diabetes Medical history: neuropathy, GERD, allergies/asthma Diagnosed at age 41 Current medications: Jardiance 25mg daily, lantus 10 units, trulicity 1.5mg weekly (increased from 0.75mg daily) Past medications: ozempic -did not tolerate 2/2 nausea and poor glucose control Freestyle Yancy 3+ TGT 52% no lows Last A1C 05/03 of 7.0% today at 7.5% Microvascular/macrovascular complications: No retinopathy. +neuropathy-stable on gabapentin Family history: mom diabetes Sees eye-utd Sees podiatry-utd ROS CONSTITUTIONAL: Denies weight loss, fever and chills. HEENT: Denies changes in vision and hearing. RESPIRATORY: Denies SOB and cough. CV: Denies palpitations and CP GI: Denies abdominal pain, nausea, vomiting and diarrhea. : Denies dysuria and urinary frequency. MSK: Denies new myalgia and joint pain. SKIN: Denies rash and pruritus. NEUROLOGICAL: Denies headache PSYCHIATRIC: Denies recent changes in mood. PHYSICAL EXAM: GENERAL: Alert and oriented x 3. NAD EYES: EOMI. Anicteric. HENT: Moist mucous membranes. No scleral icterus. No cervical lymphadenopathy. LUNGS: Clear to auscultation bilaterally. CARDIOVASCULAR: Regular rate and rhythm. No murmur. No JVD. ABDOMEN: Soft, non-tender +bs EXTREMITIES: No edema. Non-tender. SKIN: No rashes or lesions. Warm. NEUROLOGIC: No focal neurological deficits. CN II-XII grossly intact PSYCHIATRIC: Cooperative. Appropriate mood and affect [facility] Medical History Diabetic neuropathy GERD (gastroesophageal reflux disease) Lumbago with sciatica, right side Anxiety Hypertension Surgical History Hx of wisdom tooth extraction Family History Father Cancer Mother Heart disease Social History Housing: Condominium Patient Tobacco Use Status: Current everyday Tobacco user Cigarettes Per Day: 7 e-Cigarette/Vaping Use: Never Used Second Hand Smoke Exposure: Yes service: No Current occupational status: employed Current occupation: [employer] Current occupational exposures/hazards: No Cognitive needs: No Hearing needs: No Vision needs: No Physical Exam Vital Signs: Last Vital Signs Pulse 90 09/19/24 08:24 BP 142/90 H 09/19/24 08:24 Pulse Ox 97 09/19/24 08:24 Oxygen Delivery Method Room Air 09/19/24 08:24 BMI result Body Mass Index 30.1 Results AMB Hemoglobin A1c AMB Hemoglobin A1c 7.5 % Last Edit by BRENDEN Lin on 09/19/24 08:54 Assessment & Plan Assessment & Plan (1) Insulin-requiring or dependent type II diabetes mellitus: Code(s): E11.9 - Type 2 diabetes mellitus without complications; Z79.4 - [facility] (current) use of insulin Category: Medical Plan: Uncontrolled. Increase trulicity to 3mg weekly. Continue lantus, jardiance Continue annual eye exam Return in 4 months labs prior. 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
[2024-09-19 08:38] LABS: Glucose, Whole Blood 210 mg/dL (60-115)
--- OUTSIDE RECORDS SUMMARY | 2024-09-19 08:46 | XMS_ITS ---
Author Organization [facility] Sai khushboo [place] Address [address] [place] [address] Care Team Providers Care Interior Specialist Name Role Phone Morro Marmolejo Primary Care Provider Unav ailable Black, Felicitas Unavailable [phone] Allergies No Known Allergies REASON FOR VISIT [...] Ulcer of toe of left foot (disorder) (94260654971 428831) Skin ulcer of toe of left foot, limited to breakdown of skin (L97.521) Active confirmed Problem Ulcer of toe of right foot (disorder) (29674914754 950266) Skin ulcer of toe of right foot, limited to breakdown of skin (L97.511) Active confirmed Vital Signs Height 5ft 11in in 09/14/2023 Weight 210 lbs 09/14/2023 BMI 29.29 kg/m2 09/14/2023 Procedures Procedure Date Ordered Date Performed Result Body Sit e 46051- Debride <25 sq cm 09/14/2023 N/A Encounters Encounter Location Date Provider Diagnosis [facility] [address] 09/14/2023 Felicitas Black Skin ulcer of toe [...] INSTRUCTIONS.pdf) Pending Test Test Name Order Date 95423- Debride <25 sq cm 09/14/2023 Next Appt [...] of the wound post debridement is stable (48489) Progress Notes * Donte MAY: [birth year] (43 yo M)Acc No.[id number]:09/14/2023 Progress Notes Patient:?Donte May Provider:?Felicitas Frederick DPM :1980???Age:43 Y???Sex:Male Cristi e:09/14/2023 Address:[address] [place] [address], [place] [id number] Pcp:Morro Perez NP-CUONG Subjective: * Chief Complaints: [...] 6.9 * Examination: ???Ophthalmology Referral: ?DIABETES EYE EXAM?Diabetic Retinopathy Screening:?No?Dermatologic: ?ULCER:? LOCATION,T5, SIZE, 10mm X 5mm X [...] of the wound post debridement is stable (83103).? * Procedure Codes:?27986 ACTIV E WOUND CARE/20 CM OR <, Modifiers: T5 * Preventive Medicine:? ??Counseling:?Ulcer:?Given recent successful results to treatment, The patient is to cont the local wound care as directed.? * Follow Up:?prn * Images: * Sign off status: Completed true * Provider:?Felicitas Frederick DPM Date:?2023 Generated for Gerard brooks/Rosita/Yoli on:?09/19/2024 08:46 AM EDT History and Physical Notes * HPI (History [...]
--- OUTSIDE RECORDS SUMMARY | 2024-09-19 08:46 | XMS_ITS ---
Author Organization [facility] Address [address] [facility] [place] [address] Care Team Providers Care Business Initiatives Manager Name Role Phone Morro Marmolejo Primary Care Provider Unav ailable Felicitas Frederick Unavailable [phone] Encounters Encounter Location Date Provider Diagnosis [address] [address] 03/16/2024 Felicitas Frederick Plan Of Treatment No Information Progress Notes * Donte MAYDOB: [birth year] (44 yo M)Acc No.[id number]:03/16/2024 Progress Note Patient:JenniferDonte MAY Provider:?Felicitas Frederick DPM :1980???Age:43 Y???Sex:Male Cristi e:03/16/2024 Address:[address] [place] [address], [facility] Pcp:MAGDA Dailey Subjective: * Chief Complaints: * ??? * Medical History:? Objective: * Vitals:? Assessment: Plan: * Treatment: * Images: * The named appointment provid er may or may not be the originator of this progress note, and it is not deemed complete until electronically signed by the appointment provider. Sign off status: Pending * Provider:?Felicitas Frederick DPM Date:?2023 Generated for Mackenziei cecilia/Rosita/eTransmitting on:?09/19/2024 08:46 AM EDT
--- OUTSIDE RECORDS SUMMARY | 2024-09-19 08:46 | XMS_ITS | Patient Health Record ---
[facility] Organization [facility] Address [address] [facility] [place] [address] Care Team Providers Care Clinical Team Manager Name Role Phone Morro Marmolejo Primary Care Provider Unav ailable Black, Felicitas Unavailable [phone] Allergies No Known Allergies Reason For Referral [...] Problem Acquired hammer toe of right foot (6163203795898276 ) Other hammer toe(s) (acquired), right foot (M20.41) Active confirmed Problem Acquired hammer toe of left foot (1652822479640458 ) Other hammer toe(s) (acquired), left foot (M20.42) Active confirmed Problem Polyneuropathy due to type 2 diabetes mellitus (296849257) Type 2 diabetes mellitus with diabetic polyneuropathy (E11.42) Active confirmed Problem Ulcer of toe of right foot (disorder) (5312353723809381 1) Skin ulcer of toe of right foot, limited to breakdown of skin (L97.511) Active confirmed Problem Ulcer of toe of left foot (disorder) (2919105503364450 2) Skin ulcer of toe of left foot, limited to breakdown of skin (L97.521) Active confirmed Problem Skin ulcer of to e of right foot with fat layer exposed (L97.512) Active confirmed Problem Ulcer of toe (526460951) Skin ulcer of toe of left foot with fat layer exposed (L97.522) Active confirmed Encounters Encounter Location Date Provider Diagnosis [facility] [address] [address] 03/14/2024 Felicitas Frederick Plan Of Treatment Pending Test Test Name Order Date [id number] 07/15/2023 [id number] 07/29/2023 80350- Debride <25 sq cm 09/14/2023 [id number] SKIN/TISSUE 07/29/2023 [id number] SKIN/TISSUE 08/12/2023 [id number] DYSTROPHIC NAILS ANY # [id number] DYSTROPHIC NAILS ANY # Insurance Providers Payer Name Payer Address Payer Phone Subscriber Number Group Number Insured Name Patient Relationship to Insured Coverage Start Date Coverage End Date [facility] [address] [place] [address] [id number] Donte May Self - patient is the insured Medical (General) History Medical History History ICD Code Back,Hip,and Knee pain Broken bones covid-19 type II diabetes Headaches/Migraines High blood pressure Reflux ( GERD) Chicken pox Surgical History Surgery Date(Month/Year)
--- OUTSIDE RECORDS SUMMARY | 2024-09-19 08:46 | XMS_ITS ---
Author Organization [facility] Address [address] [facility] [address] Care Team Providers Care Kettle Worker Name Role Phone Morro Marmolejo Primary Care Provider Unav ailable Black, Felicitas Unavailable [phone] REASON FOR VISIT 03/16/24 cx Encounters Encounter Location Date Provider Diagnosis [address] [address] 03/14/2024 Felicitas Black Plan Of Treatment No Information Progress Notes * Donte CARDENASDOB: [birth year] (43 yo M)Acc No.[id number]:03/14/2024 Patient:?Donte Cardenas :1980???Age:43 Y???Sex:Male Address:[address] [place] [address] 7, [place] [address] * true * Date:? Generated for Printi ng/Faxing/eTransmitting on:?09/19/2024 08:45 AM EDT
--- OUTSIDE RECORDS SUMMARY | 2024-09-19 08:46 | XMS_ITS | Data Portability ---
Author Organization [place] [facility] Address [address] [place] [address] Care Team Providers Care Sourcing Internship Name Role Phone CHANNING FELIZ Primary Care Provider Assessment No assessment recorded. Plan of Treatment Reminders Order Date Submit Date Provider Last Modified By Organization Details Last Modified Time Details Appointments Establish ed 30 2024 01:30P M LIONEL BRICEÑO MD Not available Not available Not available Lab unlisted lab - C-anca+P- anca w/reflex 2024 025 BROCK [facility] (Centralized Electronic Ordering - All Locations), Patient Can Go To The Location Of Their Choice, 08/13/2024 16:21:23 myelopero xidase, QN, plasma 2024 025 BROCK [facility] (Centralized Electronic Ordering - All Locations), Patient Can Go To The Location Of Their Choice, 08/13/2024 16:21:24 ESR (erythroc yte sedimenta tion rate), blood 2024 025 BROCK [facility] (Centralized Electronic Ordering - All Locations), Patient Can Go To The Location Of Their Choice, 08/13/2024 16:21:25 CBC w/ auto diff 2024 025 BROCK [facility] (Centralized Electronic Ordering - All Locations), Patient Can Go To The Location Of Their Choice, 08/13/2024 16:21:22 ige, total, serum 2024 025 BROCK [facility] (Centralized Electronic Ordering - All Locations), Patient Can Go To The Location Of Their Choice, [id number] 08/13/2024 16:21:24 GERARDO (angioten sin-conve rting enzyme), serum 2024 025 BROCK [facility] (Centralized Electronic Ordering - All Locations), Patient Can Go To The Location Of Their Choice, [id number] 08/13/2024 16:21:24 Referral None recorded. Procedures None recorded. Surgeries None recorded. Imaging None recorded. Medication Orders None recorded. Patient TargetsNo targets recorded. Patient Instructions Encounter Date Encounter Id Patient Instructions Last Modified By Organization Details Last Modified Time 08/09/2024 [id number] 44-year-old male with history of type 2 diabetes on Trulicity presents with several months of chronic nasal congestion, obstruction, crusting and irritation. He has been aggressively blowing his nose and using ceua-hle-njivoqr decongestant preparations several times a day. Remote history of intranasal pharmaceutical use. Denies any use for at least 8 years suggest saline irrigations twice daily and fluticasone with the opposite hand technique. Laboratory studies for vasculitis ordered. If symptoms persist and workup negative consider CT of sinuses. [email or web address] Not available 08/09/2024 12:31:02 Reason for Referral None Reported. Results Created Date Observation Date Name Description Value Unit Range Abnormal Flag Note LastModifiedBy Organization Detail LastModifiedTime 08/09/1908/10/2024 CBC WITH DIFFE RENTI AL/PL ATELE T WBC 11.2 x10e3 /uL 3.4-10 .8 above high normal Not Available [facility] ([facility]) [address] [place], [address], 08/13/2024 16:21:22 08/09/19 25 08/10/2024 CBC WITH DIFFE RENTI AL/PL ATELE T RBC 5.29 x10e6 /uL 4.14-5 .80 normal Not Available [facility] ([facility]) [address] [place], [address], 08/13/2024 16:21:22 08/09/19 25 08/10/2024 CBC WITH DIFFE RENTI AL/PL ATELE T hemoglobin 16.3 g/dL 13.0-1 7.7 normal Not Available [facility] ([facility]) [address] [place], [address], 08/13/2024 16:21:22 08/09/19 25 08/10/2024 CBC WITH DIFFE RENTI AL/PL ATELE T hematocrit 47.5 % 37.5-5 1.0 normal Not Available [facility] ([facility]) [address] [facility], [place], [address], 08/13/2024 16:21:22 08/09/19 25 08/10/2024 CBC WITH DIFFE RENTI AL/PL ATELE T MCV 90 fL 79-97 normal Not Available [facility] ([facility]) [address] [facility], [place], [address], 08/13/2024 16:21:22 08/09/19 25 08/10/2024 CBC WITH DIFFE RENTI AL/PL ATELE T MCH 30.8 pg 26.6-3 3.0 normal Not Available [facility] ([facility]) [address] [place], [address], 08/13/2024 16:21:22 08/09/19 25 08/10/2024 CBC WITH DIFFE RENTI AL/PL ATELE T MCHC 34.3 g/dL 31.5-3 5.7 normal Not Available [facility] ([facility]) [address] [place], [address], 08/13/2024 16:21:22 08/09/19 25 08/10/2024 CBC WITH DIFFE RENTI AL/PL ATELE T RDW 13.0 % 11.6-1 5.4 Not Available [facility] ([facility]) [address] [place], [address], 08/13/2024 16:21:22 08/09/19 25 08/10/2024 CBC WITH DIFFE RENTI AL/PL ATELE T platelets 271 x10e3 /uL 150-45 0 normal Not Available [facility] ([facility]) [address] [facility], [place], [address], 08/13/2024 16:21:22 08/09/19 25 08/10/2024 CBC WITH DIFFE RENTI AL/PL ATELE T neutrophils 56 % not estab. normal Not Available [facility] ([facility]) [address] [facility], [place], [address], 08/13/2024 16:21:22 08/09/19 25 08/10/2024 CBC WITH DIFFE RENTI AL/PL ATELE T lymphs 35 % not estab. normal Not Available [facility] ([facility]) [address] [facility], [place], [address], 08/13/2024 16:21:22 08/09/19 25 08/10/2024 CBC WITH DIFFE RENTI AL/PL ATELE T monocytes 5 % not estab. normal Not Available [facility] ([facility]) [address] [facility], [place], [address], 08/13/2024 16:21:22 08/09/19 25 08/10/2024 CBC WITH DIFFE RENTI AL/PL ATELE T eos 3 % not estab. normal Not Available [facility] ([facility]) [address] [facility], [place], [address], 08/13/2024 16:21:22 08/09/19 25 08/10/2024 CBC WITH DIFFE RENTI AL/PL ATELE T basos 1 % not estab. normal Not Available [facility] ([facility]) [address] [facility], [place], [address], 08/13/2024 16:21:22 08/09/19 25 08/10/2024 CBC WITH DIFFE RENTI AL/PL ATELE T immature cells RACING SECRETARY AND HANDICAPPER Not Available [facility] ([facility]) [address] [facility], [place], [address], 08/13/2024 16:21:22 08/09/19 25 08/10/2024 CBC WITH DIFFE RENTI AL/PL ATELE T neutrophils (absolute) 6.3 x10e3 /uL 1.4-7. 0 normal Not Available [facility] ([facility]) [address] [place], [address], 08/13/2024 16:21:22 08/09/19 25 08/10/2024 CBC WITH DIFFE RENTI AL/PL ATELE T lymphs (absolute) 4.0 x10e3 /uL 0.7-3. 1 above high normal Not Available [facility] ([facility]) [address] [place], [address], 08/13/2024 16:21:22 08/09/19 25 08/10/2024 CBC WITH DIFFE RENTI AL/PL ATELE T monocytes(ab solute) 0.5 x10e3 /uL 0.1-0. 9 normal Not Available [facility] ([facility]) [address] [place], [address], 08/13/2024 16:21:22 08/09/19 25 08/10/2024 CBC WITH DIFFE RENTI AL/PL ATELE T eos (absolute) 0.3 x10e3 /uL 0.0-0. 4 normal Not Available [facility] ([facility]) [address] [place], [address], 08/13/2024 16:21:22 08/09/19 25 08/10/2024 CBC WITH DIFFE RENTI AL/PL ATELE T baso (absolute) 0.1 x10e3 /uL 0.0-0. 2 normal Not Available [facility] ([facility]) [address] [place], [address], 08/13/2024 16:21:22 08/09/19 25 08/10/2024 CBC WITH DIFFE RENTI AL/PL ATELE T immature granulocytes 0 % not estab. Not Available [facility] ([facility]) [address] [facility], [place], [address], 08/13/2024 16:21:22 08/09/19 25 08/10/2024 CBC WITH DIFFE RENTI AL/PL ATELE T immature grans (abs) 0.0 x10e3 /uL 0.0-0. 1 Not Available [facility] ([facility]) [address] [facility], [place], [address], 08/13/2024 16:21:22 08/09/19 25 08/10/2024 CBC WITH DIFFE RENTI AL/PL ATELE T NRBC RACING SECRETARY AND HANDICAPPER Not Available [facility] ([facility]) [address] [facility], [place], [address], 08/13/2024 16:21:22 08/09/19 25 08/10/2024 CBC WITH DIFFE RENTI AL/PL ATELE T hematology comments: RACING SECRETARY AND HANDICAPPER Not Available [facility] ([facility]) [address] [facility], [place], [address], 08/13/2024 16:21:22 08/09/19 25 08/13/2024 C-ANC A+P-A NCA W/REF NOLVIA cytoplasmic (C-anca) <1:20 titer neg:<1 :20 Not Available [facility] ([facility]) [address] [facility], [place], [address], 08/13/2024 16:21:23 08/09/19 25 08/13/2024 C-ANC A+P-A NCA W/REF NOLVIA perinuclear (P-anca) <1:20 titer neg:<1 :20 The prese nce of posit penny fluor escen ce exhib iting P-ANC A or C-ANC A patte rns alone is not speci fic for the diagn osis of Chipgen er's Granu lomat osis (WG) or micro scopi c polya ngiit is. Decis ions about treat ment shoul d not be based solel y on ANCA IFA resul ts. The Inter natio nal [employer]CA [employer] Conse nsus recom mends follo w up testi ng of posit penny sera with both NE-3 and MPO-A NCA enzym e immun oassa ys. As many as 5% serum sampl es are posit penny only by EIA. Ref. AM J Clin Patho l 1999; 111:5 07-51 3. Not Available [facility] ([facility]) [address] [facility], [place], [address], 08/13/2024 16:21:23 08/09/19 25 08/10/2024 ANGIO TENSI N-CON VERTI NG ENZYM E GERARDO, serum 36 U/L 14-82 Not Available [facility] ([facility]) [address] [place], [address], 08/13/2024 16:21:24 08/09/19 25 08/11/2024 MYELO PEROX IDASE (MPO) myeloperoxid ase (mpo) 1090 pmol/ L 0-469 above high normal Low CVD Risk <470 Moder ate Risk 470 - 539 High Risk >539 Not Available [facility] ([facility]) [address] [facility], [place], [address], 08/13/2024 16:21:24 08/09/19 25 08/11/2024 IMMUN OGLOB ULIN E, TOTAL immunoglobul in E, total 755 IU/mL 6-495 above high normal Not Available [facility] ([facility]) [address] [place], [address], 08/13/2024 16:21:24 08/09/19 25 08/10/2024 SEDIM ENTAT ION RATE- WESTE RGREN sedimentatio n rate-westerg kelly 6 mm/HR 0-15 normal Not Available [facility] ([facility]) [address] [place], [address], 08/13/2024 16:21:25 Result Notes None recorded. Problems Name Problem SNOMED Code Status Onset Date Resolution Date Notes Provider Name and Address Organization Details Recorded Time Deviated nasal septum 688975567 Active 2024 LIONEL BRICEÑO MD [address] [address], [place], [address], [facility] 12:07:21 Chronic rhinitis 62335556 Active 2024 LIONEL BRICEÑO MD [address] [address], [place], [address], [facility] 12:07:28 Eosinophilic granulomatosis with polyangiitis 62183695 Active 2024 LIONEL BRICEÑO MD [address] [address], [place], [address], [facility] 12:07:42 Problem Notes None recorded. Medical Equipment None Reported. Medications Name Sig Start Date Stop Date Status Note LastModified by Organization Details LastModified Time losartan 50 mg tablet TAKE 1 TABLET BY MOUTH DAILY active Not Available Not Available No t Available atorvastati n 10 mg tablet TAKE 1 TABLET BY MOUTH AT BEDTIME active Not Available Not Available No t Available nicotine (polacrilex ) 2 mg gum CHEW 1 PIECE BY MOUTH EVERY 2 HOURS NEEDED FOR SMOKING CESSATION active Not Available Not Available No t Available ondansetron 8 mg disintegrat ing tablet DISSOLVE 1 TABLET ON THE TONGUE EVERY 12 HOURS NEEDED FOR NAUSEA OR VOMITING 08/09 completed Not Available Not Available Not Available famotidine 20 mg tablet TAKE 1 TABLET BY MOUTH TWICE DAILY active Not Available Not Available No t Available gabapentin 300 mg capsule TAKE 1 CAPSULE BY MOUTH THREE TIMES DAILY active Not Available Not Available No t Available montelukast 10 mg tablet TAKE 1 TABLET BY MOUTH AT BEDTIME active Not Available Not Available No t Available methylpredn isolone 4 mg tablets in a dose pack FOLLOW PACKAGE DIRECTION S active Not Available Not Available No t Available cefdinir 300 mg capsule TAKE ONE CAPSULE BY MOUTH TWICE DAILY active Not Available Not Available No t Available fluticasone propionate 50 mcg/actuati on nasal spray,suspe nsion SHAKE LIQUID AND USE 2 SPRAYS IN EACH NOSTRIL DAILY active Not Available Not Available No t Available amoxicillin 875 mg-kiran kamara clavulanate 125 mg tablet TAKE 1 TABLET BY MOUTH TWICE DAILY FOR 10 DAYS active Not Available Not Available No t Available varenicline tartrate 0.5 mg (11)-1 mg (42) tablets in a dose pack TAKE ACCORDING TO PACKAGE LABELING 08/09 completed Not Available Not Available Not Available BD Ultra-Fine Short Pen Needle 31 gauge x 5/16 USE EVERY EVENING FOR DIABETES active Not Available Not Available No t Available Lantus Solostar U-100 Insulin 100 unit/mL (3 mL) subcutaneou s pen INJECT 10 UNITS SUBCUTANE OUS EVERY EVENING active Not Available Not Available No t Available Jardiance 10 mg tablet TAKE 1 TABLET BY MOUTH DAILY active Not Available Not Available No t Available Jardiance 25 mg tablet TAKE 1 TABLET BY MOUTH DAILY active Not Available Not Available No t Available Trulicity 1.5 mg/0.5 mL subcutaneou s pen injector ADMINISTE R 1.5 MG UNDER THE SKIN EVERY WEEK active Not Available Not Available No t Available Trulicity 0.75 mg/0.5 mL subcutaneou s pen injector ADMINISTE R 0.75 MG UNDER THE SKIN EVERY WEEK active Not Available Not Available No t Available FreeStyle Yancy 2 Sensor kit USE DIRECTED THREE TIMES DAILY active Not Available Not Available No t Available Ozempic 1 mg/dose (4 mg/3 mL) subcutaneou s pen injector ADMINISTE R 1 MG UNDER THE SKIN EVERY WEEK active Not Available Not Available No t Available Ozempic 2 mg/dose (8 mg/3 mL) subcutaneou s pen injector ADMINISTE R 2 MG UNDER THE SKIN EVERY WEEK active Not Available Not Available No t Available FreeStyle Yancy 3 Plus Sensor device USE DIRECTED TO TEST BLOOD GLUCOSE active Not Available Not Available No t Available Vitals None Recorded Social History Question Answer Notes LastModified by Organizat ion Details LastModified Time Tobacco Smoking Status Current Every Day Smoker LIONEL GHOSH MD [address] [place] [address], [phone], [facility] 08/09/2024 12:09:35 What Is Your Level Of Alcohol Consumption? None None For 8 Years surekha Information not available 08/09/2024 What Is Your Current Pack Years? 10-19packye ars Information not available 08/09/2024 How Much Tobacco Do You Smoke? 0.5 PPD Information not available 08/09/2024 Do You Use Any Illicit Or Recreational Drugs? No Past Cocaine Information not available 08/09/2024 Sex: Unknown Functional Status None recorded. Mental Status None recorded. Family History Nothing Reported. Medical History Condition Response Allergies/Hayfever N Heart Problems N Anxiety N Tonsil Infections N Emphysema N Migraines N Thyroid Problems N Glaucoma N Depression N COPD N Developmental Delay N Nasal or Sinus Problems Y Anemia N Immune System Disorder N Anesthesia Complications N Heart Attack (IA) N Other Skin Condition N Diabetes Y Rhinitis N Bleeding Disorder N Food Allergy N Arthritis N Hearing Loss N Hyperlipidemia N Cancer N Stroke N Dementia N Nasal polyps Y Asthma N High Cholesterol N Sleep Disorder N GERD/Reflux Y Liver Disease N Headaches N Fibromyalgia N Hypertension Y Speech Delay N Kidney Disease N Past Encounters Encounter ID Performer Location Encounter Start Date Encounter Closed Date Diagnosis/Indication Diagnosis SNOMED-CT Code Diagnosis ICD10 Code Diagnosis Note [id number] LIONEL BASSETT MD [facility] [address] [address] 08/09/2024 11:38:05 08/09/2024 12:12:08 Deviated nasal septum 178127980 J34.2 Chronic rhinitis 2481743 6 J31.0 Eosinophil ic granulomatosis with polyangiitis 83205970 M30.1 Health Concerns Section Related Observation LastModified by Organization Detai ls LastModified Time None Recorded Concern Status LastModified by Organization Details LastModified Time None Recorded Advance Directives Directive None Recorded Payers Encounter Date Sequence Insurance Name Policy Number Policy Pacheco Covered Member ID Pacheco Member ID Guarantor Name 08/09/[address] [place] [address] [id number] Donte May [id number] Donte May Notes Date Note Type Note Provider Name and Address Organization Details Recorded Time 08/09/2024 text/html 44-year-old male with history of type 2 diabetes on Trulicity presents with several months of chronic nasal congestion, obstruction, crusting and irritation. He has been aggressively blowing his nose and using nuko-tnu-jkmymlb decongestant preparations several times a day. Remote history of intranasal pharmaceutical use. Denies any use for at least 8 years LIONEL GHOSH MD [address] [place] [address], [place], [address], [facility] 08/09/2024 12:31:29
== END 2024-09-19 08:56 | disposition home or self-care (01) ==
LOC: HO.ENCR 08:22
PROVIDERS: PCP Nurse Practitioner Family; Visit Provider Internal Medicine
DX: E11.9 Type 2 diabetes mellitus without complications (principal); Z79.4 Long term (current) use of insulin

== ENCOUNTER → 2024-09-19 08:21 | Outpatient (BNVA) | payer OTHER, SELFPAY | PROVIDERS: PCP Nurse Practitioner Family; Visit Provider Internal Medicine | DX: E11.9 Type 2 diabetes mellitus without complications (principal); Z79.4 Long term (current) use of insulin; Z79.85 Long-term (current) use of injectable non-insulin antidiabetic drugs | CPT/HCPCS: 82947; 83036 ==

== ENCOUNTER 2025-01-22 06:18 | Outpatient (REF) | payer OTHER, SELFPAY ==
[2025-01-22 10:23] LABS: Hemoglobin A1C 261.5620 umol/L; Total Hemoglobin (HGBA1C) 3946.9519 umol/L
[2025-01-22 10:55] LABS: Alanine Aminotransferase 49 U/L (0-40); Albumin Level 4.6 g/dL (3.5-5.0); Alkaline Phosphatase 65 U/L (39-117); Anion Gap 15 (12-20); Aspartate Amino Transferase 34 U/L (5-37); Blood Urea Nitrogen 17 mg/dL (9-16); Calcium 9.5 mg/dL (8.4-10.2); Carbon Dioxide 29 mmol/L (22-29); Chloride 102 mmol/L (96-108); Cholesterol 165 mg/dL (<200); Estimated Glomerular Filt Rate > 60; HDL Cholesterol 37 mg/dL (>40); Potassium 4.8 mmol/L (3.3-5.1); Sodium 141 mmol/L (135-145); Total Protein 7.6 g/dL (6.5-8.0); Triglycerides 199 mg/dL (<150)
== END 2025-01-22 06:19 | disposition home or self-care (01) ==
LOC: HO.HMGCLDS 06:18
PROVIDERS: PCP Nurse Practitioner Family; Visit Provider Internal Medicine
DX: E11.40 Type 2 diabetes mellitus with diabetic neuropathy, unspecified (principal); Z79.4 Long term (current) use of insulin
CPT/HCPCS: 80053; 80061; 83036; 86341

== ENCOUNTER 2025-01-23 08:34 | Outpatient (AMB) | payer OTHER, SELFPAY ==
--- NOTE | 2025-01-23 08:36 | A.OFFVIS_ITS ---
Vital Signs 01/23/25 08:38 Height 5 ft 11 in Weight 224 lb 13.944 oz BMI 31.4 BP 130/86 Blood Pressure Location Rt brachial Position Sitting Pulse 86 Pulse Source Pulse Oximeter Pulse Oximetry (%) 96 Oxygen Delivery Method Room Air Intake Visit Reasons: T2DM Intake Note: Patient presents here today for follow-up on Type 2 Diabetes Mellitus: Last Diabetic eye exam was on: 03/2024 Last Podiatry exam was on: Does not see a [employer] Most recent HbA1c: 8.2%, 01/22/2025 Random Glucose- 191 mg/dL, Today Customs Port Director Required: No Accompanied by: Self / Same As Patient Allergies semaglutide (From Ozempic) Adverse Reaction (Mild, Verified 01/23/25 08:46) Nausea HPI Comments Details: The patient is a 44 year old male presenting for diabetes Medical history: neuropathy, GERD, allergies/asthma Diagnosed at age 41 Current medications: Jardiance 25mg daily, lantus 10 units, trulicity 3mg weekly. glucose has been running higher. Finding it hard to find time to eat healthy dinner. His kids are playing sports until late evening. Past medications: ozempic -did not tolerate 2/2 nausea and poor glucose control. Stopped metformin 2/2 GI side effects Freestyle Yancy 3+ TGT 52% no lows Last A1C yesterday 8.2% from 7.5% from 05/03 of 7.0% Microvascular/macrovascular complications: No retinopathy. +neuropathy-stable on gabapentin Family history: mom diabetes Sees eye-utd Sees podiatry-utd ROS CONSTITUTIONAL: Denies weight loss, fever and chills. HEENT: Denies changes in vision and hearing. RESPIRATORY: Denies SOB and cough. CV: Denies palpitations and CP GI: Denies abdominal pain, nausea, vomiting and diarrhea. : Denies dysuria and urinary frequency. MSK: Denies new myalgia and joint pain. SKIN: Denies rash and pruritus. NEUROLOGICAL: Denies headache PSYCHIATRIC: Denies recent changes in mood. PHYSICAL EXAM: GENERAL: Alert and oriented x 3. NAD EYES: EOMI. Anicteric. HENT: Moist mucous membranes. No scleral icterus. No cervical lymphadenopathy. LUNGS: Clear to auscultation bilaterally. CARDIOVASCULAR: Regular rate and rhythm. No murmur. No JVD. ABDOMEN: Soft, non-tender +bs EXTREMITIES: No edema. Non-tender. SKIN: No rashes or lesions. Warm. NEUROLOGIC: No focal neurological deficits. CN II-XII grossly intact PSYCHIATRIC: Cooperative. Appropriate mood and affect [facility] Medical History Diabetic neuropathy GERD (gastroesophageal reflux disease) Lumbago with sciatica, right side Anxiety Hypertension Surgical History Hx of wisdom tooth extraction Family History Father Cancer Mother Heart disease Social History Housing: Condominium Patient Tobacco Use Status: Current everyday Tobacco user Cigarettes Per Day: 7 e-Cigarette/Vaping Use: Never Used Second Hand Smoke Exposure: Yes service: No Current occupational status: employed Current occupation: [employer] Current occupational exposures/hazards: No Cognitive needs: No Hearing needs: No Vision needs: No Physical Exam Vital Signs: Last Vital Signs Pulse 86 01/23/25 08:38 BP 130/86 01/23/25 08:38 Pulse Ox 96 01/23/25 08:38 Oxygen Delivery Method Room Air 01/23/25 08:38 BMI result Body Mass Index 31.4 Results Reviewed Results Reviewed: Laboratory Last Values Glucose (Clinic) 191 mg/dL (60-115) H 01/23/25 08:43 Assessment & Plan Assessment & Plan (1) Insulin-requiring or dependent type II diabetes mellitus: Code(s): E11.9 - Type 2 diabetes mellitus without complications; 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 Increase trulicity to 4.5mg weekly. May switch to mounjaro in future if covered Continue jardiance. Start glipizide 5mg daily. Increase to 10mg if remains high Rules of 15s for hypoglycemia Neuropathy is stable on gabapentin Return in 3 months or sooner as needed Medications: New glipizide ER 10 mg (2 x 5 mg) PO DAILY 180 tabs 3RF dulaglutide (Trulicity) 4.5 mg (0.5 mL) subcut QWEEK 6 mL 3RF Refilled gabapentin 300 mg PO TID 90 caps 3RF Discontinued dulaglutide (Trulicity) Discontinued Reason: Doctor's Order 3 mg (0.5 mL) subcut QWEEK 6 mL 3RF Coding Level of Care Code Est Pt Level 4 (92219) Diagnoses Insulin-requiring or dependent type II diabetes mellitus E11.9; Z79.4
[2025-01-23 08:38] VITALS: BP 130/86; PULSE 86; O2SAT 96; BMI 31.4
--- OUTSIDE RECORDS SUMMARY | 2025-01-23 08:41 | XMS_ITS | Data Portability ---
Author Organization [place] [facility], Allergy Address [address] [address] Care Team Providers Care Training Instructor Name Role Phone CHANNING FELIZ Primary Care Provider Assessment No assessment recorded. Plan of Treatment Reminders Order Date Submit Date Provider Last Modified By Organization Details Last Modified Time Details Appointments None recorded. Lab unlisted lab - C-anca+P-an ca w/reflex 2024 025 BROCK [facility] (Centralized Electronic Ordering - All Locations), Patient Can Go To The Location Of Their Choice, 16:21:23 myeloperoxi dase, QN, plasma 2024 025 [facility] (Centralized Electronic Ordering - All Locations), Patient Can Go To The Location Of Their Choice, 16:21:24 ESR (erythrocyt e sedimentati on rate), blood 2024 025 BR[facility] (Centralized Electronic Ordering - All Locations), Patient Can Go To The Location Of Their Choice, 16:21:25 CBC w/ auto diff 2024 025 [facility] (Centralized Electronic Ordering - All Locations), Patient Can Go To The Location Of Their Choice, 16:21:22 ige, total, serum 2024 025 [facility] (Centralized Electronic Ordering - All Locations), Patient Can Go To The Location Of Their Choice, 16:21:24 GERARDO (angiotensi n-convertin g enzyme), serum 2024 025 BROCK [facility] (Centralized Electronic Ordering - All Locations), Patient Can Go To The Location Of Their Choice, [id number] 16:21:24 Referral None recorded. Procedures None recorded. Surgeries None recorded. Imaging None recorded. Medication Orders None recorded. Patient TargetsNo targets recorded. Patient Instructions Encounter Date Encounter Id Patient Instructions Last Modified By Organization Details Last Modified Time 08/09/2024 [id number] 44-year-old male with history of type 2 diabetes on Trulicity presents with several months of chronic nasal congestion, obstruction, crusting and irritation. He has been aggressively blowing his nose and using aryy-vdl-pjdbapm decongestant preparations several times a day. Remote history of intranasal pharmaceutical use. Denies any use for at least 8 years suggest saline irrigations twice daily and fluticasone with the opposite hand technique. Laboratory studies for vasculitis ordered. If symptoms persist and workup negative consider CT of sinuses. [email or web address] Not available 08/09/2024 12:31:02 Reason for Referral None Reported. Results Created Date Observation Date Name Description Value Unit Range Abnormal Flag Note LastModifiedBy Organization Detail LastModifiedTime 08/09/1908/10/2024 CBC WITH DIFFE RENTI AL/PL ATELE T WBC 11.2 x10e3 /uL 3.4-10 .8 above high normal Not Available [facility] ([facility]) [address] [place], [address], 08/13/2024 16:21:22 08/09/19 25 08/10/2024 CBC WITH DIFFE RENTI AL/PL ATELE T RBC 5.29 x10e6 /uL 4.14-5 .80 normal Not Available [facility] ([facility]) [address] [place], [address], 08/13/2024 16:21:22 08/09/19 25 08/10/2024 CBC WITH DIFFE RENTI AL/PL ATELE T hemoglobin 16.3 g/dL 13.0-1 7.7 normal Not Available [facility] ([facility]) [address] [place], [address], 08/13/2024 16:21:22 08/09/19 25 08/10/2024 CBC WITH DIFFE RENTI AL/PL ATELE T hematocrit 47.5 % 37.5-5 1.0 normal Not Available [facility] ([facility]) [address] [place], [address], 08/13/2024 16:21:22 08/09/19 25 08/10/2024 CBC WITH DIFFE RENTI AL/PL ATELE T MCV 90 fL 79-97 normal Not Available [facility] ([facility]) [address] [place], [address], 08/13/2024 16:21:22 08/09/19 25 08/10/2024 CBC WITH DIFFE RENTI AL/PL ATELE T MCH 30.8 pg 26.6-3 3.0 normal Not Available [facility] ([facility]) [address] [place], [address], 08/13/2024 16:21:22 08/09/19 25 08/10/2024 CBC WITH DIFFE RENTI AL/PL ATELE T MCHC 34.3 g/dL 31.5-3 5.7 normal Not Available [facility] ([facility]) [address] [place], [address], 08/13/2024 16:21:22 08/09/19 25 08/10/2024 CBC WITH DIFFE RENTI AL/PL ATELE T RDW 13.0 % 11.6-1 5.4 Not Available [facility] ([facility]) [address] [place], [address], 08/13/2024 16:21:22 08/09/19 25 08/10/2024 CBC WITH DIFFE RENTI AL/PL ATELE T platelets 271 x10e3 /uL 150-45 0 normal Not Available [facility] ([facility]) [address] [place], [address], 08/13/2024 16:21:22 08/09/19 25 08/10/2024 CBC WITH DIFFE RENTI AL/PL ATELE T neutrophils 56 % not estab. normal Not Available [facility] ([facility]) [address] [facility], [place], [address], 08/13/2024 16:21:22 08/09/19 25 08/10/2024 CBC WITH DIFFE RENTI AL/PL ATELE T lymphs 35 % not estab. normal Not Available [facility] ([facility]) [address] [facility] [place], [address], 08/13/2024 16:21:22 08/09/19 25 08/10/2024 CBC WITH DIFFE RENTI AL/PL ATELE T monocytes 5 % not estab. normal Not Available [facility] ([facility]) [address] [facility] [place], [address], 08/13/2024 16:21:22 08/09/19 25 08/10/2024 CBC WITH DIFFE RENTI AL/PL ATELE T eos 3 % not estab. normal Not Available [facility] ([facility]) [address] [facility] [place], [address], 08/13/2024 16:21:22 08/09/19 25 08/10/2024 CBC WITH DIFFE RENTI AL/PL ATELE T basos 1 % not estab. normal Not Available [facility] ([facility]) [address] [facility] [place], [address], 08/13/2024 16:21:22 08/09/19 25 08/10/2024 CBC WITH DIFFE RENTI AL/PL ATELE T immature cells WARP SPINNER Not Available [facility] ([facility]) [address] [facility] [place], [address], 08/13/2024 16:21:22 08/09/19 25 08/10/2024 CBC WITH DIFFE RENTI AL/PL ATELE T neutrophils (absolute) 6.3 x10e3 /uL 1.4-7. 0 normal Not Available [facility] ([facility]) [address] [place], [address], 08/13/2024 16:21:22 08/09/19 25 08/10/2024 CBC WITH DIFFE RENTI AL/PL ATELE T lymphs (absolute) 4.0 x10e3 /uL 0.7-3. 1 above high normal Not Available [facility] ([facility]) [address] [place], [address], 08/13/2024 16:21:22 08/09/19 25 08/10/2024 CBC WITH DIFFE RENTI AL/PL ATELE T monocytes(ab solute) 0.5 x10e3 /uL 0.1-0. 9 normal Not Available [facility] ([facility]) [address] [facility] [place], [address], 08/13/2024 16:21:22 08/09/19 25 08/10/2024 CBC WITH DIFFE RENTI AL/PL ATELE T eos (absolute) 0.3 x10e3 /uL 0.0-0. 4 normal Not Available [facility] ([facility]) [address] [place], [address], 08/13/2024 16:21:22 08/09/19 25 08/10/2024 CBC WITH DIFFE RENTI AL/PL ATELE T baso (absolute) 0.1 x10e3 /uL 0.0-0. 2 normal Not Available [facility] ([facility]) [address] [place], [address], 08/13/2024 16:21:22 08/09/19 25 08/10/2024 CBC WITH DIFFE RENTI AL/PL ATELE T immature granulocytes 0 % not estab. Not Available [facility] ([facility]) [address] [place], [address], 08/13/2024 16:21:22 08/09/19 25 08/10/2024 CBC WITH DIFFE RENTI AL/PL ATELE T immature grans (abs) 0.0 x10e3 /uL 0.0-0. 1 Not Available [facility] ([facility]) [address] [facility] [place], [address], 08/13/2024 16:21:22 08/09/19 25 08/10/2024 CBC WITH DIFFE RENTI AL/PL ATELE T NRBC WARP SPINNER Not Available [facility] ([facility]) [address] [facility] [place], [address], 08/13/2024 16:21:22 08/09/19 25 08/10/2024 CBC WITH DIFFE RENTI AL/PL ATELE T hematology comments: WARP SPINNER Not Available [facility] ([facility]) [address] [facility] [place], [address], 08/13/2024 16:21:22 08/09/19 25 08/13/2024 C-ANC A+P-A NCA W/REF NOLVIA cytoplasmic (C-anca) <1:20 titer neg:<1 :20 Not Available [facility] ([facility]) [address] [facility], [place], [address], 08/13/2024 16:21:23 08/09/19 25 08/13/2024 C-ANC A+P-A NCA W/REF NOLVIA perinuclear (P-anca) <1:20 titer neg:<1 :20 The prese nce of posit penny fluor escen ce exhib iting P-ANC A or C-ANC A patte rns alone is not speci fic for the diagn osis of Sanaz er's Granu lomat osis (WG) or micro scopi c polya ngiit is. Decis ions about treat ment shoul d not be based solel y on ANCA IFA resul ts. The Inter natio nal ANCA Group Conse nsus recom mends follo w up testi ng of posit penny sera with both ID-3 and MPO-A NCA enzym e immun oassa ys. As many as 5% serum sampl es are posit penny only by EIA. Ref. AM J Clin Patho l 1999; 111:5 07-51 3. Not Available [facility] ([facility]) [address] [place], [address], 08/13/2024 16:21:23 08/09/19 25 08/10/2024 ANGIO TENSI N-CON VERTI NG ENZYM E GERARDO, serum 36 U/L 14-82 Not Available [facility] ([facility]) [address] [place], [address], 08/13/2024 16:21:24 08/09/19 25 08/11/2024 MYELO PEROX IDASE (MPO) myeloperoxid ase (mpo) 1090 pmol/ L 0-469 above high normal Low CVD Risk <470 Moder ate Risk 470 - 539 High Risk >539 Not Available [facility] ([facility]) [address] [place], [address], 08/13/2024 16:21:24 08/09/19 25 08/11/2024 IMMUN OGLOB ULIN E, TOTAL immunoglobul in E, total 755 IU/mL 6-495 above high normal Not Available [facility] ([facility]) [address] [place], [address], 08/13/2024 16:21:24 08/09/19 25 08/10/2024 SEDIM ENTAT ION RATE- WESTE RGREN sedimentatio n rate-westerg kelly 6 mm/HR 0-15 normal Not Available [facility] ([facility]) [address] [place], [address], 08/13/2024 16:21:25 Result Notes None recorded. Problems Name Problem SNOMED Code Status Onset Date Resolution Date Notes Provider Name and Address Organization Details Recorded Time Deviated nasal septum 070312667 Active 2024 LIONEL BRICEÑO MD [address] [facility], [address], [place], [address], [facility] - [facility] 5 12:07:21 Chronic rhinitis 26203178 Active 2024 LIONEL BRICEÑO MD 100 [facility] [address], [place], [address], [facility] - [facility] 5 12:07:28 Eosinophilic granulomatosis with polyangiitis 02567811 Active 2024 LIONEL BRICEÑO MD [address] [facility] [address], [place], [address], [facility] 5 12:07:42 Problem Notes None recorded. Medical Equipment [...] Not Available No t Available amoxicillin 875 mg-potzahidau m clavulanate 125 mg tablet TAKE 1 TABLET [...] Current Every Day Smoker LIONEL GHOSH MD [address] [place] [address], [place], [address], [facility] - [facility] 08/09/2024 12:09:35 What Is Your Current Pack Years? 10-19packyear s [employer] Information not available 08/09/2024 How Much Tobacco Do You Smoke? 0.5 [email or web address] Information not available 08/09/2024 Sex: Unknown Functional Status Question Answer Note LastModified by Organizat ion Details LastModified Time Do you use any illicit or recreational drugs? No past cocaine Information not available 08/09/2024 What is your level of alcohol consumption? None none for 8 years Information not available 08/09/2024 Mental Status None recorded. Family History Nothing Reported. Medical History Condition Response Allergies/Hayfever N Heart Problems N Anxiety N Tonsil Infections N Emphysema N Migraines N Thyroid Problems N Developmental Delay N COPD N Depression N Glaucoma N Nasal or Sinus Problems Y Anemia N Immune System Disorder N Anesthesia Complications N Heart Attack (RI) N Other Skin Condition N Diabetes Y [...] SNOMED-CT Code Diagnosis ICD10 Code Diagnosis Note [id number] LIONEL BASSETT MD [facility] [address] [address] 08/09/2024 11:38:05 08/09/2024 12:12:08 Deviated nasal septum 263408476 J34.2 Chronic rhinitis 1495794 6 J31.0 Eosinophil ic granulomatosis with polyangiitis 99986959 M30.1 Health Concerns Section Related Observation LastModified by Organization Detai ls LastModified Time None Recorded Concern Status LastModified by Organization Details LastModified Time None Recorded Advance Directives Directive None Recorded Payers Insurance Date Sequence Insurance Name Policy Number Policy Pacheco Covered Member ID Pacheco Member ID Guarantor Name 08/09/2024 1 [facility] Donte May [id number] Donte May 10/24/[address] [place] [address] [id number] Donte May [id number] Donte May Notes Date Note Type Note Provider Name and Address Organization Details Recorded Time 08/09/2024 text/html 44-year-old male with history of type 2 diabetes on Trulicity presents with several months of chronic nasal congestion, obstruction, crusting and irritation. He has been aggressively blowing his nose and using zkda-ydc-fztlddp decongestant preparations several times a day. Remote history of intranasal pharmaceutical use. Denies any use for at least 8 years LIONEL GHOSH MD [address] [place] [address], [address], [facility] - [facility] 08/09/2024 12:31:29
--- OUTSIDE RECORDS SUMMARY | 2025-01-23 08:41 | XMS_ITS | Patient Health Record ---
Author Organization [facility] Address [address] [facility] [place] [address] Care Team Providers Care Product Lead Name Role Phone Morro Marmolejo Primary Care Provider Unav ailable Black, Felicitas Unavailable [phone] Allergies No Known Allergies Reason For Referral No Information Medications Medication SIG (Take, Route, Frequency, Duration) Notes Start Date End Date Status Cephalexin 500 MG 1 capsule Orally twi ce a day; Duration: 10 days 07/15/2023 Not-Takin g Cephalexin 500 MG 1 capsule Orally twi ce a day; Duration: 10 days 07/29/2023 Not-Takin g Ozempic 1 mg Active Losartan Potassium 50 [...] Problem Acquired hammer toe of right foot (6829820053161535 ) Other hammer toe(s) (acquired), right foot (M20.41) Active confirmed Problem Acquired hammer toe of left foot (4584084909828035 ) Other hammer toe(s) (acquired), left foot (M20.42) Active confirmed Problem Polyneuropathy due to type 2 diabetes mellitus (447056821) Type 2 diabetes mellitus with diabetic polyneuropathy (E11.42) Active confirmed Problem Ulcer of toe of right foot (disorder) (4550137249996154 1) Skin ulcer of toe of right foot, limited to breakdown of skin (L97.511) Active confirmed Problem Ulcer of toe of left foot (disorder) (8419999789968394 2) Skin ulcer of toe of left foot, limited to breakdown of skin (L97.521) Active confirmed Problem Skin ulcer of to e of right foot with fat layer exposed (L97.512) Active confirmed Problem Skin ulcer of to e of left foot with fat layer exposed (L97.522) Active confirmed Encounters Encounter Location Date Provider Diagnosis [facility] [address] [place] [address] 03/14/2024 Felicitas Frederick Plan Of Treatment Pending Test Test Name Order Date [id number] 07/15/2023 [id number] 07/29/2023 57075- Debride <25 sq cm 09/14/2023 [id number] SKIN/TISSUE 07/29/2023 [id number] SKIN/TISSUE 08/12/2023 [id number] DYSTROPHIC NAILS ANY # [id number] DYSTROPHIC NAILS ANY # Insurance Providers Payer Name Payer Address Payer Phone Subscriber Number Group Number Insured Name Patient Relationship to Insured Coverage Start Date Coverage End Date [facility] [address] [place] [address] [id number] Donte May Self - patient is the insured Medical (General) History Medical History History ICD Code Back,Hip,and Knee pain Broken bones covid-19 type II diabetes Headaches/Migraines High blood pressure Reflux ( GERD) Chicken pox Surgical History Surgery Date(Month/Year)
[2025-01-23 08:46] LABS: Glucose, Whole Blood 191 mg/dL (60-115)
== END 2025-01-23 09:16 | disposition home or self-care (01) ==
LOC: HO.ENCR 08:35
PROVIDERS: PCP Nurse Practitioner Family; Visit Provider Internal Medicine
DX: E11.9 Type 2 diabetes mellitus without complications (principal); Z79.4 Long term (current) use of insulin

== ENCOUNTER → 2025-01-23 08:34 | Outpatient (BNVA) | payer OTHER, SELFPAY | PROVIDERS: PCP Nurse Practitioner Family; Visit Provider Internal Medicine | DX: E11.9 Type 2 diabetes mellitus without complications (principal); Z79.4 Long term (current) use of insulin; Z79.85 Long-term (current) use of injectable non-insulin antidiabetic drugs; Z79.84 Long term (current) use of oral hypoglycemic drugs | CPT/HCPCS: 82947 ==

== ENCOUNTER 2025-04-24 08:25 | Outpatient (AMB) | payer OTHER, SELFPAY ==
--- OUTSIDE RECORDS SUMMARY | 2024-03-16 04:30 | XMS_ITS ---
[facility] Address [address] [place] [address] Care Team Providers Care Wellness Manager Name Role Phone Morro Marmolejo Primary Care Provider Unav ailable Felicitas Frederick Unavailable [phone] Encounters Encounter Location Date Provider Diagnosis [address] [address] 03/16/2024 Felicitas Frederick Plan Of Treatment No Information Progress Notes * Donte MAYDOB: [birth year] (44 yo M)Acc No.[id number]:03/16/2024 Progress Note Patient: Elizabeth DO Donte Judge Provider: Neil Frederick DPM :1980 A ge:43 Y S ex:Male Date:03/16/2024 Address:[address] [place] [address] [address], [facility] Pcp:MAGDA Dailey Subjective: * Chief Complaints: * * Medical History: Objective: * Vitals: Assessment: Plan: * Treatment: * Images: * The named appointment provid er may or may not be the originator of this progress note, and it is not deemed complete until electronically signed by the appointment provider. Sign off status: Pending * Provider: Neil Frederick DPM Date: 0 03/16/2024 Generated for Gerard brooks/Rosita/eTransmitting on: 08:44 AM EDT
--- NOTE | 2025-04-24 08:30 | A.OFFVIS_ITS ---
Vital Signs 04/24/25 08:32 Height 5 ft 11 in Weight 224 lb 13.944 oz BMI 31.4 BP 134/82 Blood Pressure Location Rt brachial Position Sitting Pulse 75 Pulse Source Pulse Oximeter Pulse Oximetry (%) 98 Oxygen Delivery Method Room Air Intake Visit Reasons: T2DM - see comments Intake Note: Patient presents here today for follow-up on Type 2 Diabetes Mellitus: Last Diabetic eye exam was on: 03/2024, has an appt next week. Last Podiatry exam was on: Does not see a Drier And Pulverizer Tender Most recent HbA1c: 6.9%, 04/24/2025 Random Glucose- 137 mg/dL, Today Sewage Disposal Worker Required: No Accompanied by: Self / Same As Patient Allergies semaglutide (From Ozempic) Adverse Reaction (Mild, Verified 04/24/25 08:33) Nausea HPI Comments Details: The patient is a 44 year old male presenting for diabetes Medical history: neuropathy, GERD, allergies/asthma Diagnosed at age 41 Current medications: Jardiance 25mg daily, lantus 10 units trulicity 4.5mg weekly. glucose has improved greatly with the increase in trulicity Past medications: ozempic -did not tolerate 2/2 nausea and poor glucose control. Stopped metformin 2/2 GI side effects Freestyle Yancy 3+ TGT 81% 19% high 0% lows A1C 6.9% today from 8.2% from 7.5% from 05/03 of 7.0% Microvascular/macrovascular complications: No retinopathy. +neuropathy-stable on gabapentin Family history: mom diabetes Sees eye-utd he needs a new procedures tech ROS CONSTITUTIONAL: Denies weight loss, fever and chills. HEENT: Denies changes in vision and hearing. RESPIRATORY: Denies SOB and cough. CV: Denies palpitations and CP GI: Denies abdominal pain, nausea, vomiting and diarrhea. : Denies dysuria and urinary frequency. MSK: Denies new myalgia and joint pain. SKIN: Denies rash and pruritus. NEUROLOGICAL: Denies headache PSYCHIATRIC: Denies recent changes in mood. PHYSICAL EXAM: GENERAL: Alert and oriented x 3. NAD EYES: EOMI. Anicteric. HENT: Moist mucous membranes. No scleral icterus. No cervical lymphadenopathy. LUNGS: Clear to auscultation bilaterally. CARDIOVASCULAR: Regular rate and rhythm. No murmur. No JVD. ABDOMEN: Soft, non-tender +bs EXTREMITIES: No edema. Non-tender. SKIN: No rashes or lesions. Warm. NEUROLOGIC: No focal neurological deficits. CN II-XII grossly intact PSYCHIATRIC: Cooperative. Appropriate mood and affect [facility] Medical History Diabetic neuropathy GERD (gastroesophageal reflux disease) Lumbago with sciatica, right side Anxiety Hypertension Surgical History Hx of foot surgery Hx of wisdom tooth extraction Family History Father Cancer Mother Heart disease Social History Housing: Condominium Patient Tobacco Use Status: Current everyday Tobacco user Cigarettes Per Day: 7 e-Cigarette/Vaping Use: Never Used Second Hand Smoke Exposure: Yes service: No Current occupational status: employed Current occupation: [employer] Current occupational exposures/hazards: No Cognitive needs: No Hearing needs: No Vision needs: No Physical Exam Vital Signs: Last Vital Signs Pulse 75 04/24/25 08:32 BP 134/82 04/24/25 08:32 Pulse Ox 98 04/24/25 08:32 Oxygen Delivery Method Room Air 04/24/25 08:32 BMI result Body Mass Index 31.4 Results AMB Hemoglobin A1c AMB Hemoglobin A1c 6.9 % Last Edit by BRENDEN Lin on 04/24/25 08:45 Results Reviewed Results Reviewed: Laboratory Last Values Glucose (Clinic) 137 mg/dL (60-115) H 04/24/25 08:36 Assessment & Plan Assessment & Plan (1) Hypertension: Code(s): I10 - Essential (primary) hypertension Category: Medical Qualifiers: Hypertension type: primary hypertension Qualified Code(s): I10 - Essential (primary) hypertension (2) Diabetes: Code(s): E11.9 - Type 2 diabetes mellitus without complications Category: Medical Qualifiers: Diabetes mellitus type: type 2 Diabetes mellitus senior living insulin use: unspecified senior living insulin use status Diabetes mellitus complication status: without complication Qualified Code(s): E11.9 - Type 2 diabetes mellitus without complications (3) Insulin-requiring or dependent type II diabetes mellitus: Code(s): E11.9 - Type 2 diabetes mellitus without complications; Z79.4 - oysterman (current) use of insulin Category: Medical Plan DM-controlled Continue current medications Referral to podiatry placed for continued foot care Eye exam is UTD Treat hypoglycemia by rules of 15s Return in six months or sooner as needed Orders: Orders AMB Hemoglobin A1c Today E11.9 - Type 2 diabetes mellitus without complications, Z79.4 - oysterman (current) use of insulin Referrals Podiatry Referral E11.9 - Type 2 diabetes mellitus without complications Medications: Refilled insulin glargine (Lantus Solostar U-100 Insulin) 10 units (0.1 mL) subcut QPM 15 mL 1RF Coding Level of Care Code Est Pt Level 4 (87868) Diagnoses Primary hypertension I10 Hypertension type: primary hypertension Type 2 diabetes mellitus without complications, unspecified whether senior living insulin use E11.9 Diabetes mellitus type: type 2 Diabetes mellitus tank terminal gauger insulin use: unspecified tank terminal gauger insulin use status Diabetes mellitus complication status: without complication Insulin-requiring or dependent type II diabetes mellitus E11.9; Z79.4
[2025-04-24 08:32] VITALS: BP 134/82; PULSE 75; O2SAT 98; BMI 31.4
[2025-04-24 08:39] LABS: Glucose, Whole Blood 137 mg/dL (60-115)
--- OUTSIDE RECORDS SUMMARY | 2025-04-24 08:44 | XMS_ITS | Patient Health Record ---
Author Organization [facility] Address [address] [place] [address] Care Team Providers Care Network Systems Analyst Name Role Phone Morro Marmolejo Primary Care Provider Unav ailable Black, Felicitas Unavailable [phone] Allergies No Known Allergies Reason For Referral [...] Problem Acquired hammer toe of right foot (3817733970299237 ) Other hammer toe(s) (acquired), right foot (M20.41) Active confirmed Problem Acquired hammer toe of left foot (2747504912807561 ) Other hammer toe(s) (acquired), left foot (M20.42) Active confirmed Problem Polyneuropathy due to type 2 diabetes mellitus (029559148) Type 2 diabetes mellitus with diabetic polyneuropathy (E11.42) Active confirmed Problem Ulcer of toe of right foot (disorder) (2047437361418190 1) Skin ulcer of toe of right foot, limited to breakdown of skin (L97.511) Active confirmed Problem Ulcer of toe of left foot (disorder) (2653412879054814 2) Skin ulcer of toe of left foot, limited to breakdown of skin (L97.521) Active confirmed Problem Skin ulcer of to e of right foot with fat layer exposed (L97.512) Active confirmed Problem Skin ulcer of to e of left foot with fat layer exposed (L97.522) Active confirmed Plan Of Treatment Pending Test Test Name Order Date [id number] 07/15/2023 [id number] 07/29/2023 [id number]- Debride <25 sq cm 09/14/2023 [id number] SKIN/TISSUE 07/29/2023 [id number] SKIN/TISSUE 08/12/2023 [id number] DYSTROPHIC NAILS ANY # [id number] DYSTROPHIC NAILS ANY # Insurance Providers Payer Name Payer Address Payer Phone Subscriber Number Group Number Insured Name Patient Relationship to Insured Coverage Start Date Coverage End Date [facility] [address] [place] [address] [id number] Donte May Self - patient is the insured Medical (General) History Medical History History ICD Code Back,Hip,and Knee pain Broken bones covid-19 type II diabetes Headaches/Migraines High blood pressure Reflux ( GERD) Chicken pox Surgical History Surgery Date(Month/Year)
== END 2025-04-24 08:59 | disposition home or self-care (01) ==
LOC: HO.ENCR 08:26
PROVIDERS: PCP Nurse Practitioner Family; Visit Provider Internal Medicine
DX: I10 Essential (primary) hypertension (principal); E11.9 Type 2 diabetes mellitus without complications; Z79.4 Long term (current) use of insulin

== ENCOUNTER → 2025-04-24 08:25 | Outpatient (BNVA) | payer OTHER, SELFPAY | PROVIDERS: PCP Nurse Practitioner Family; Visit Provider Internal Medicine | DX: E11.9 Type 2 diabetes mellitus without complications (principal); I10 Essential (primary) hypertension; Z79.4 Long term (current) use of insulin; Z79.85 Long-term (current) use of injectable non-insulin antidiabetic drugs | CPT/HCPCS: 82947; 83036; 99212 ==